=== PATIENT | female | born 1945 | race Caucasian/White ===

== ENCOUNTER 2019-02-24 15:12 | Inpatient (IN) | payer OTHER ==
--- NOTE | 2019-02-24 12:02 | R.PREADM ---
SCREENING DATE AND TIME 02/24/2019 09:05 (DIRECTOR DIETETICS DEPARTMENT) ANTICIPATED REHAB ADMISSION DATE 02/26/2019 REFERRING FACILITY [facility] REFERRAL DATE AND TIME 02/21/2019 11:48 (DIRECTOR DIETETICS DEPARTMENT) REFERRAL OFFICE PHONE REFERRAL ROOM# [id number] ACUTE ADMIT DATE 02/18/2019 Previous Rehabilitation(s): No. ACUTE DISCOTHEQUE DANCER/DC LICENSING AND REGISTRATION DIRECTOR Laura Barrientos REFERRING PHYSICIAN Abram Dutta MD PRIMARY CARE PHYSICIAN Abram Dutta MD REHAB FACILITY [facility] CLINICAL LIAISON Harsh Wynne RN PHYSICIAN REVIEWER Dr. Dontrell Blevins M.D. MR# [id number] NAME GLORIA CARNEY ADDRESS [address] [facility] PHONE [facility] [id number] DATE OF 1945 AGE 73 SSN# [id number] GENDER female MARITAL STATUS RACE white ADMIT FROM 02 - [facility] PRE-HOSPITAL LIVING SETTING 01 - Home (private home/apt. board/care, assisted living, senior care, transitional living) HOME TYPE AND DETAILS Type of home: single family house # of steps within the residence: 1 # of steps to enter the residence: 1 PRE-HOSPITAL LIVING WITH Family/Relatives FAMILY SUPPORT Yes PRIMARY FAMILY CONTACT NAME Rakel Lakhani PRIMARY FAMILY CONTACT PHONE PRIMARY FAMILY CONTACT RELATIONSHIP Friend PHONE PRIMARY FAMILY CONTACT ON ADM.? no IS PRIMARY FAMILY CONTACT AUTH. REP.? no 1ST EMERGENCY CONTACT Kar Rakel 1ST CONTACT PHONE 1ST CONTACT RELATIONSHIP Friend PHONE 1ST CONTACT ON ADM. no IS 1ST CONTACT AUTH. REP.? no PHONE 2ND CONTACT ON ADM.? no PATIENT EMPLOYMENT STATUS Retired (for age) PATIENT EMPLOYER No Employer PAYOR INFORMATION: 1ST PAYOR NAME Medicare 1ST PAYOR PHONE [phone] 1ST PAYOR INJURY/ILLNESS DUE TO ACCIDENT? No ANOTHER GREEN PARTY RESPONSIBLE? No PRIMARY REHAB/ACUTE DIAGNOSIS: Hip Fracture ONSET DATE 02/18/2019 REHAB IMPAIRMENT CATEGORY (JENNA): 07 Fracture of LE (FracLE) MEETS 60% rule AFFECTED EXTREMITIES: LLE PRIMARY DIAGNOSIS-RELATED SURGERIES: Emergency Unilateral Hip Fracture - performed by Abram Dutta MD on 02/20/2019 SUMMARY OF ACUTE HOSPITALIZATION: Pt. is a 73 yo Right-handed white female. On 02/18/2019 she was admitted to [facility] and underwent emergency surgery for Hip Fracture (Unilateral H ip Fracture) by Abram Dutta MD. Pre-morbidly, Pt. was independent/mod-I in Locomotion, Safety Awareness, Balance, and Self-Care; and she had good Social Cognition, Transfers Control, Sphincter Control, Communication, and Endurance. Currently, she has deficits of Locomotion, Safety Awareness, Self-Care, Balance, Transfers Control, S ocial Cognition, Sphincter Control, and Endurance. Pt. is now referred to [facility] for acute in-patient rehabilitation in order to maximize patient's functional independence in activities of daily living, strength, ROM, and mobi lity. Patient has realistic goal of being discharged at assistance level 6-Mike to reside at Home with Fam jenn/Relatives. PAST MEDICAL HISTORY Hypertention Age-related osteoporosis with current pathological fracture, right shoulder, initial encounter for fr navas (M80.011 osteoporosis Normocytic Anemia Thrombocytopenia Sleep apena Depression MEDICATION ALLERGIES: No Known Drug Allergies (NKDA) ENVIRONMENTAL ALLERGIES: - Substance Allergies None Known - Other Allergies None Known CODE STATUS: Full code WEIGHT/HEIGHT/BMI: WEIGHT 125 lbs HEIGHT 5' 4" BMI 21.5 DIET: - Diet Type Regular - Diet - Solid Texture Regular - Diet - Liquid Texture Regular - Tube Feed N/A SKIN DIAGRAM: Incision on Left hip; extent - small; stage - NS(Not Stageable). Treatment - Per Physician's Orders. REVIEW OF SYSTEMS: - Gen Interactive Oriented to: person, time, and place In distress secondary to decline of status Alert and awake - Vital Signs Temperature: 98.2 F SBP/DBP: 129/57 Pulse: 71 Resp: 18 Vital signs stable, afebrile - CVS RRR VITAL SIGNS Temperature: 98.2 F SBP/DBP: 129/57 Pulse: 71 Resp: 18 Vital signs stable, afebrile MEDICATIONS/TREATMENT: Other- See attached MAR (Medication Administration Record). CURRENT SPHINCTER CONTROL: Pre-hospital bladder status: continent # of bladder accidents in the last 7 days prior to screenin Pre-hospital bowel status: unspecified # of bowel accidents in the last 7 days prior to screenin Last Bowel Movement Date: 02/18/2019 CURRENT LOCOMOTION STATUS: distance traveled in wheelchair 0 feet distance walked 0 feet DETAILED CURRENT FUNCTIONAL STATUS: - Bladder accident frequency: Ind - No accidents in the past 7 days - Bowel accident frequency: Ind - No accidents in the past 7 days - Walking score based on distance walked: 0(N/A) - Wheelchair score based on distance traveled: 0(N/A) QI SCORES: - Self-Care A. Eating 06-Independent B. Oral hygiene 06-Independent C. Toileting hygiene 02-Substantial/maximal assistance E. Shower/bathe self 02-Substantial/maximal assistance F. Upper body dressing 05-Setup or clean-up assistance G. Lower body dressing 01-Dependent H. Putting on/taking off footwear 01-Dependent - Mobility A. Roll left and right 04-Supervision or touching assistance B. Sit to lying 04-Supervision or touching assistance C. Lying to sitting on side of bed 04-Supervision or touching assistance D. Sit to stand 04-Supervision or touching assistance E. Chair/vwv-kr-upidl transfer 04-Supervision or touching assistance F. Toilet transfer 04-Supervision or touching assistance G. Car transfer 88-Not attempted due to medical condition or safety concerns I. Walk 10 feet 04-Supervision or touching assistance J. Walk 50 feet with two turns 10-Not attempted due to environmental limitations K. Walk 150 feet 04-Supervision or touching assistance L. Walking 10 feet on uneven surfaces 10-Not attempted due to environmental limitations M. 1 step (curb) 10-Not attempted due to environmental limitations N. 4 steps 10-Not attempted due to environmental limitations O. 12 steps 10-Not attempted due to environmental limitations P. Picking up object 10-Not attempted due to environmental limitations R. Wheel 50 feet with two turns S. Wheel 150 feet - Bladder and Bowel Bladder continence 0-Always continent Bowel continence 9-Not rated - Endurance Fair - Balance Poor - Safety Awareness Poor CURRENT FUNC. DEFICITS: Endurance, Balance, Mobility, Safety Awareness, and Self-Care CURRENT / PREVIOUS ASSISTIVE DEVICES: Quad Cane Tub Bench Tub Handles HISTORY OF FALLS. HAS THE PATIENT HAD TWO OR MORE FALLS IN THE PAST YEAR OR ANY FALL WITH INJURY IN T HE PAST YEAR?: No PRIOR SURGERY. DID THE PATIENT HAVE MAJOR SURGERY DURING THE 100 DAYS PRIOR TO ADMISSION?: Yes THERAPY NOTES FROM ACUTE CARE: Attached. SPECIAL NEEDS: - Safety Concerns Skin breakdown precautions needed due to skin breakdown risk PRECAUTIONS: - Posterior Hip Precaution No external rotation No hip flexion >90 degrees No internal rotation No wheel chair propulsion - Weight Bearing Precaution WBAT left LE PATIENT NEEDS ACTIVE AND ONGOING THERAPEUTIC INTERVENTION OF MULTIPLE THERAPY DISCIPLINES, INCLUDING: - Dietary and Nutrition Adequate Nutrition. Nutritional Education. Nutritional Supplements. PATIENT NEEDS CLOSE MEDICAL SUPERVISION BY A REHABILITATION PHYSICIAN FOR: Coordination of Treatment Team Post-Op Complications Wound Care PATIENT REQUIRES 24X7 REHAB NURSING FOR MEDICAL AND FUNCTIONAL MGT. OF THE FOLLOWING DEFICITS: Disease Management Medication Management Patient/Family Education Providing Safe Environment Skin Integrity PATIENT REQUIRES INTENSIVE, COORDINATED INTERDISCIPLINARY APPROACH TO REHAB: Arranging Home Equipment/Services Discharge Planning Family Intervention/Training Nonprofit Financial Controller/Case Management PATIENT REHAB POTENTIAL: Devyn CARNEY is able and expected to receive 3 hours of individualized therapy daily on at least 5 of every 7 days Devyn BEDOYAs prognosis for significant practical improvement within a reasonable period of time appe ars Good Expected level of measurable improvement will be of a practical value to Devyn BEDOYAs functional cap acity or adaptations to impairments Has a viable Discharge Plan Medically appropriate; condition is sufficiently stable to participate in intensive rehab program DISCHARGE PLAN: - Estimated Length of Stay (days) 14. - Consensus on plan Discharge plan has been discussed with primary caregiver. Patient/Family is in agreement with the abdirizak n. Primary caregiver is in agreement with the plan. - Patient/Family Goals Return home with assistance. - Planned Living Setting Upon Discharge Home, to live with Family/Relatives. RECOMMENDED CARE LEVEL: IRF RECOMMENDATION DETAILS: Recommended Admission to Comprehensive Rehabilitation Program to Increase Functional Wendel SCREENER'S COMPLETENESS CONFIRMATION: - Screening Confirmation The patient data collection on this preadmission screening form is finished PHYSICIANS REVIEW AND ADMISSION DETERMINATION Admit - Based on my review of the Pre-Admission Screening results, in my medical judgment and experie nce, I concur with the findings and recommend admission to [facility], as this patient requires an IRF level of care. SIGNATURE PANEL: Clinical Liaison - [electronically] signed by Cassidy Gonzalez on 02/24/2019 at 11:02 (DIRECTOR DIETETICS DEPARTMENT) Clinical Liaison - [electronically] signed by Harsh Wynne RN on 02/24/2019 at 11:29 (DIRECTOR DIETETICS DEPARTMENT) Physician Reviewer - [electronically] signed by Dr. Dontrell Blevins M.D. on 02/24/2019 at 12:01 (DIRECTOR DIETETICS DEPARTMENT )
[2019-02-24 19:20] LABS: Urine Appearance CLEAR; Urine Bilirubin NEGATIVE (NEG); Urine Blood NEGATIVE (NEG); Urine Color YELLOW; Urine Glucose NEGATIVE (NEG); Urine Protein NEGATIVE (NEG); Urine Specific Gravity 1.015 (1.005-1.030)
[2019-02-24 19:32] LABS: Urine Bacteria <20 /HPF (<20); Urine Culture Reflex Order NOT NEEDED; Urine Mucus 1+ /HPF (NONE SEEN); Urine RBC <5 /HPF (NONE SEEN)
[2019-02-24] MEDS ORDERED: SENOSIDES 8.6 MG TAB PO PRN (19:38)
[2019-02-24] MEDS ORDERED: DOCUSATE NA 100 MG CAP PO PRN (19:38)
--- NOTE | 2019-02-24 20:05 | R.HP ---
FACILITY: [facility] ENCOUNTER DATE AND TIME: 02/24/2019 20:01 (SUPERVISOR PRE WAVE) MR#: [id number] NAME GLORIA CARNEY ADDRESS: [address] [place] [address]: [place] [address] [address] PHONE: DATE OF : 1945 AGE: 73 SSN# [id number] GENDER: Female DEXTERITY Right-handed MARITAL STATUS RACE White PRE-HOSPITAL LIVING SETTING 01 - Home (private home/apt. board/care, assisted living, long term, transitional living) PRE-HOSPITAL LIVING WITH Family/Relatives ENCOUNTER PHYSICIAN: Dr. Dontrell Blevins M.D. REFERRING DOCTOR: Abram Dutta MD DATE OF ADMISSION: 02/24/2019 17:59 (SUPERVISOR PRE WAVE) REFERRING FACILITY [facility] PRIMARY CARE PHYSICIAN Abram Dutta MD HOME TYPE AND DETAILS: Type of home: single family house # of steps within the residence: 1 # of steps to enter the residence: 1 ADMISSION DIAGNOSIS: Left Hip Fracture ONSET DATE: 02/18/2019 PRIMARY DIAGNOSIS-RELATED SURGERIES: Emergency Unilateral Hip Fracture - performed by Abram Dutta MD on 02/20/2019 HISTORY OF PRESENT ILLNESS (HPI): Pt. is a 73 yo Right-handed white female. On 02/18/2019 she was admitted to [facility] and underwent emergency surgery for Left Hip Fracture (Unilate ral Hip Fracture) by Abram Dutta MD. Pre-morbidly, Pt. was independent/mod-I in Locomotion, Safety Awareness, Balance, and Self-Care; and she had good Social Cognition, Transfers Control, Sphincter Control, Communication, and Endurance. Currently, she has deficits of Locomotion, Safety Awareness, Self-Care, Balance, Transfers Control, S ocial Cognition, Sphincter Control, and Endurance. Pt. is now referred to [facility] for acute in-patient rehabilitation in order to maximize patient's functional independence in activities of daily living, strength, ROM, and mobi lity. Patient has realistic goal of being discharged at assistance level 6-Mike to reside at Home with Fam jenn/Relatives. MEDICATION ALLERGIES: No Known Drug Allergies (NKDA) ENVIRONMENTAL ALLERGIES: - Substance Allergies None Known - Other Allergies None Known PAST MEDICAL HISTORY: Hypertention osteoporosis Age-related osteoporosis with current pathological fracture, right shoulder, initial encounter for fr navas (M80.011 Normocytic Anemia Thrombocytopenia Sleep apena Depression FAMILY HISTORY: Family history is not contributory. SOCIAL HISTORY: - Home Living Family/Relatives REVIEW OF SYSTEMS: - Gen No Chills Fatigue No Fever - Eyes No Double Vision No itchiness - ENMT No Difficulty Swallowing - CVS No Chest Discomfort No Chest Pain Fatigue No Weight Gain - Resp No Cough No Shortness of Breath - GI Continent No Abdominal Pain No Constipation No Diarrhea - Continent No Kidney Pain No Painful Urination No Urinary Urgency - MSK No Joint Pain Muscle Cramps Stiffness - Skin No Itching No Rash No Suspicious Lesions - Neuro Coordination Difficulty No Difficulty with Concentration No Memory Loss No Seizures Weakness - Psych No Anxiety No Depression No HIV Exposure No Persistent Infections No Seasonal Allergies - Endo No Cold/Heat Intolerance No Excessive Hunger No Excessive Thirst No Excessive Urination PHYSICAL EXAM - Gen Interactive Oriented to: person, time, and place In distress secondary to decline of status Alert and awake - Skin No breakdown Normacephalic - Eyes Mild bruise over the left lateral eye. - ENMT No abnormalities - Neck No abnormalities - CVS RRR - Chest No abnormalities - Resp Clear to auscultation - Abd + bowel sound - GI Non distended Deferred - No abnormalities - Ext Mild postoperative edema in the left lower extremity - MSK 4+/5 weakness in left lower extremity - Neuro 4/5 strength left lower extremity. - Psych Mild depression. VITAL SIGNS Temperature: 98.2 F SBP/DBP: 129/57 Pulse: 71 Resp: 18 NURSING: - Shower allowing shower - Skin care per protocol PRECAUTIONS: - Anterior Hip Precaution No abduction No active extension No adduction across midline No external rotation No hip flexion >90 degrees No internal rotation - Posterior Hip Precaution No external rotation No hip flexion >90 degrees No internal rotation No wheel chair propulsion - Weight Bearing Precaution WBAT left LE ACTIVITIES OOB only with supervision QI SCORES: - Self-Care A. Eating 06-Independent B. Oral hygiene 06-Independent C. Toileting hygiene 02-Substantial/maximal assistance E. Shower/bathe self 02-Substantial/maximal assistance F. Upper body dressing 05-Setup or clean-up assistance G. Lower body dressing 01-Dependent H. Putting on/taking off footwear 01-Dependent - Mobility A. Roll left and right 04-Supervision or touching assistance B. Sit to lying 04-Supervision or touching assistance C. Lying to sitting on side of bed 04-Supervision or touching assistance D. Sit to stand 04-Supervision or touching assistance E. Chair/yqy-ak-xjxgf transfer 04-Supervision or touching assistance F. Toilet transfer 04-Supervision or touching assistance G. Car transfer 88-Not attempted due to medical condition or safety concerns I. Walk 10 feet 04-Supervision or touching assistance J. Walk 50 feet with two turns 10-Not attempted due to environmental limitations K. Walk 150 feet 04-Supervision or touching assistance L. Walking 10 feet on uneven surfaces 10-Not attempted due to environmental limitations M. 1 step (curb) 10-Not attempted due to environmental limitations N. 4 steps 10-Not attempted due to environmental limitations O. 12 steps 10-Not attempted due to environmental limitations P. Picking up object 10-Not attempted due to environmental limitations R. Wheel 50 feet with two turns S. Wheel 150 feet - Bladder and Bowel Bladder continence 0-Always continent Bowel continence 9-Not rated - Endurance Fair - Balance Poor - Safety Awareness Poor CURRENT FUNC. DEFICITS: Endurance, Balance, Mobility, Safety Awareness, and Self-Care MEDICATIONS: - Other See attached MAR (Medication Administration Record) ASSESSMENT: Pt. is a 73 yo Right-handed white female.On 02/18/2019 she was admitted to [facility] and underwent emergen cy surgery for Left Hip Fracture (Unilateral Hip Fracture) by Abram Dutta MD.Pre-morbidly, Pt. was in dependent/mod-I in Locomotion, Safety Awareness, Balance, and Self-Care; and she had good Social Cogn ition, Transfers Control, Sphincter Control, Communication, and Endurance.Currently, she has deficits of Locomotion, Safety Awareness, Self-Care, Balance, Transfers Control, Social Cognition, Sphincter Control, and Endurance.Pt. is now referred to [facility] for acute in-patient rehabilitation in order to maximize patient's functional independence in activities of daily living, strength, ROM, and mobility.- Rehab Goal Patient has realistic goal of being discharged at assistance level 6-Mike to reside at Home with Fam jenn/Relatives. REHAB PLAN: - Physical Therapy Weakness - to improve, our physical therapists will perform initial evaluation of pt's status upon a dmission and devise an individualized program for Aquatic Therapy, Neuromuscular Reeducation, and Str engthening Poor balance - to improve, our physical therapists will perform initial evaluation of pt's status up on admission and devise an individualized program for Balance Training Inability to transfer - to improve, our physical therapists will perform initial evaluation of pt's status upon admission and devise an individualized program for Bed mobility Decreased range of motion - to improve, our physical therapists will perform initial evaluation of p t's status upon admission and devise an individualized program for increasing patient's Range of Guillermo on. Need in caregiver upon discharge - to improve, our physical therapists will perform initial evaluati on of pt's status upon admission and devise an individualized program for Caregiver Training Poor endurance - to improve, our physical therapists will perform initial evaluation of pt's status upon admission and devise an individualized program for Endurance Training Gait dysfunction - to improve, our physical therapists will perform initial evaluation of pt's statu s upon admission and devise an individualized program for Gait Training, and Wheel Chair mobility Need for home safety evaluation - to improve, our physical therapists will perform initial evaluatio n of pt's status upon admission and devise an individualized program for Home Evaluation New precaution - to improve, our physical therapists will perform initial evaluation of pt's status upon admission and devise an individualized program for Patient precaution education Edema - to improve, our physical therapists will perform initial evaluation of pt's status upon admi ssion and devise an individualized program for Elevation Training, and Lymphedema Therapy - Occupational Therapy Weakness - to improve, our occupation therapists will perform initial evaluation of pt's status upon admission and devise an individualized program for Aquatic Therapy, Balance, Endurance, UE ROM, and UE strengthening ADL deficits - to improve, our occupation therapists will perform initial evaluation of pt's status upon admission and devise an individualized program for Bathing, Bed mobility, Community Reintegratio n, Cooking, Dressing, Eating, Fine Motor Skills, Grooming, Homemaking, Kitchen Mobility, Laundry, Pat ient Education, Safety Awareness, Splinting - Positioning, Transfers(Toilet, Tub, Shower), and Wheel Chair Management Need for care process manager - to improve, our occupation therapists will perform initial evaluation of pt's status upon admission and devise an individualized program for Caregiver Training Cognitive deficits - to improve, our occupation therapists will perform initial evaluation of pt's s tatus upon admission and devise an individualized program for Cognition - orientation - Balance for Weakness - Bed mobility for ADL deficits MEDICAL PLAN: - Anterior Hip Precaution No abduction No active extension No adduction across midline No external rotation No hip flexion >90 degrees No internal rotation - Diet - Liquid Texture Regular - Tube Feed N/A - Diet Type Regular - Posterior Hip Precaution No external rotation No hip flexion >90 degrees No internal rotation No wheel chair propulsion - Weight Bearing Precaution WBAT LE - Skin care per protocol - Other See attached MAR (Medication Administration Record) - Diet - Solid Texture Regular - Shower shower DISCHARGE PLAN: - Estimated Length of Stay (days) 14. - Consensus on plan Discharge plan has been discussed with primary caregiver. Patient/Family is in agreement with the abdirizak n. Primary caregiver is in agreement with the plan. - Patient/Family Goals Return home with assistance. - Planned Living Setting Upon Discharge Home, to live with Family/Relatives. SIGNATURE PANEL: (SUPERVISOR PRE WAVE)
--- NOTE | 2019-02-24 20:06 | PAPE ---
PATIENT: [facility] MR# [id number] REFERRING DOCTOR Abram Dutta MD PRIMARY CARE PHYSICIAN Abram Dutta MD EVALUATION DATE AND TIME 02/24/2019 20:05 (SERVICE ORDER DISPATCHER) NAME GLORIA CARNEY DATE OF 1945 AGE 73 PHONE N# [id number] GENDER female EVALUATING PHYSICIAN Dr. Dontrell Blevins M.D. ADMISSION DIAGNOSIS: Left Hip Fracture ONSET DATE 02/18/2019 POST-ADMISSION FUNCTIONAL/MEDICAL STATUS: - Bladder Same accident frequency: Ind - No accidents in the past 7 days - Bowel Same accident frequency: Ind - No accidents in the past 7 days - Walking Same score based on distance walked: 0(N/A) - Wheelchair Same score based on distance traveled: 0(N/A) STATUS CHANGE EVALUATION: No change in Functional or Medical Status is identified compared with Pre-Admission screening. PATIENT NEEDS CLOSE MEDICAL SUPERVISION BY A REHABILITATION PHYSICIAN FOR: Coordination of Treatment Team Post-Op Complications Wound Care PATIENT REQUIRES 24X7 REHAB NURSING FOR MEDICAL AND FUNCTIONAL MGT. OF THE FOLLOWING DEFICITS: Disease Management Medication Management Patient/Family Education Providing Safe Environment Skin Integrity PATIENT REQUIRES INTENSIVE, COORDINATED INTERDISCIPLINARY APPROACH TO REHAB: Arranging Home Equipment/Services Discharge Planning Family Intervention/Training Manager Inventory Management/Case Management LIST OF IDENTIFIED AND POTENTIAL PROBLEMS: Alteration in leisure activities Bladder, Incontinence Bowel, Incontinence Infection, Actual or Potential Mobility Impaired Pain, Alteration in Comfort Self Care Deficit Skin Integrity, Actual or Potential Urinary Tract Infection (UTI), Actual or Potential PATIENT COULD BE AT RISK FOR COMPLICATIONS FROM ADVERSE MEDICAL CONDITIONS DUE TO HIS/HER COMORBIDITI ES AND THE RIGORS OF THE INTENSIVE REHABILLITATION PROGRAM. METHODS OR INTERVENTIONS TO AVOID COMPLIC ATIONS INCLUDE: - Bleeding Assess lab values and manage abnormalities. Nursing to teach precautions for anti-coagulation therapy . Wound to be assessed every shift. - Infection Clinical staff to assess and manage the signs and symptoms of infection including fever, redness, war mth, etc. - Urinary Tract Infection - Falls Patient will be evaluated for Fall Precautions and will be placed on Fall Precautions as indicated pe r protocol. - Skin Breakdown Nursing will assess skin daily using assessment tool and will place on Skin Breakdown Precautions as indicated per protocol. - Pain Clinical staff may employ non-medication methods such as massage, distraction, decrease stimulus, etc . as needed. Clinical staff will assess patient's pain level every shift per protocol to assess and e nsure pain management effectiveness. Medications will be given and the pain level re-assessed. PRELIMINARY PLAN OF CARE: - Physical Therapy Patient needs Physical Therapy for a daily minimum of 1.5 hours at least 5 out of 7 days, to improve: Mobility, Strengthening, Transfers, Stretching, ROM, Endurance, Ability to manage stairs, Gait, and Balance. - Rehabilitation Nursing Patient requires 24x7 Rehabilitation Nursing for: Pain Issues, Identifying and preventing risk factor s, Monitoring and reporting current medical conditions, Assisting with ambulation and transfer, Anh ting with all ADL-s, Teaching patients about disease process and medications, Family teaching, Provid ing safe environment, Bowel and Bladder Issues, Skin Integrity, and Medication Management. Patient needs Manager Inventory Management and/or Case Management for: Discharge Planning, Arranging Home Equipmen t or Services, and Family Interventions. - Dietary and Nutrition Services Patient needs Dietary and Nutrition Services for: Adequate Nutrition, Nutritional Supplements, and Nu tritional Education. - Occupational Therapy Patient needs Occupational Therapy for a daily minimum of 1.5 hours at least 5 out of 7 days, to impr ove Activities of Daily Living, including: Eating, Grooming, Bathing, Dressing, Toileting, Toilet Tra nsfers, Community Reintegration, Higher functional activities, Adaptive Equipment, Splinting, Househo ld Tasks, and Other activities as determined. QI SCORES: - Self-Care A. Eating 06-Independent B. Oral hygiene 06-Independent C. Toileting hygiene 02-Substantial/maximal assistance E. Shower/bathe self 02-Substantial/maximal assistance F. Upper body dressing 05-Setup or clean-up assistance G. Lower body dressing 01-Dependent H. Putting on/taking off footwear 01-Dependent - Mobility A. Roll left and right 04-Supervision or touching assistance B. Sit to lying 04-Supervision or touching assistance C. Lying to sitting on side of bed 04-Supervision or touching assistance D. Sit to stand 04-Supervision or touching assistance E. Chair/oat-dn-akaiy transfer 04-Supervision or touching assistance F. Toilet transfer 04-Supervision or touching assistance G. Car transfer 88-Not attempted due to medical condition or safety concerns I. Walk 10 feet 04-Supervision or touching assistance J. Walk 50 feet with two turns 10-Not attempted due to environmental limitations K. Walk 150 feet 04-Supervision or touching assistance L. Walking 10 feet on uneven surfaces 10-Not attempted due to environmental limitations M. 1 step (curb) 10-Not attempted due to environmental limitations N. 4 steps 10-Not attempted due to environmental limitations O. 12 steps 10-Not attempted due to environmental limitations P. Picking up object 10-Not attempted due to environmental limitations R. Wheel 50 feet with two turns S. Wheel 150 feet - Bladder and Bowel Bladder continence 0-Always continent Bowel continence 9-Not rated - Endurance Fair - Balance Poor - Safety Awareness Poor POTENTIAL FUNCTIONAL GOALS FOR PATIENT TO ACHIEVE BY DISCHARGE: - Safety Precaution Patient will remain free from falls or injury at time of discharge. - Bed Mobility Patient will perform bed mobility at 4-Boby level of assistance. - Transfers Patient will complete transfers from bed to chair at 4-Boby level of assistance. - Mobility Patient will ambulate 150 ft with 4-Boby level of assistance with RW. PATIENT REHAB POTENTIAL Devyn CARNEY is able and expected to receive 3 hours of individualized therapy daily on at least 5 of every 7 days Devyn CARNEY's prognosis for significant practical improvement within a reasonable period of time appe ars Good Expected level of measurable improvement will be of a practical value to Devyn CARNEY's functional cap acity or adaptations to impairments Has a viable Discharge Plan Medically appropriate; condition is sufficiently stable to participate in intensive rehab program DISCHARGE PLAN: - Estimated Length of Stay (days) 14. - Consensus on plan Discharge plan has been discussed with primary caregiver. Patient/Family is in agreement with the abdirizak n. Primary caregiver is in agreement with the plan. - Patient/Family Goals Return home with assistance. - Planned Living Setting Upon Discharge Home, to live with Family/Relatives. CONCLUSION ON REHABILITATION NECESSITY: I have evaluated patient's pre-admission functional status and, comparing it to the patient's post-ad mission functional status now, I conclude that the pre-admission assessment was accurate. Patient's c ondition on admission supports the medical necessity of admission to IRF. It is safe to proceed with patient's therapy program. SIGNATURE PANEL: (SERVICE ORDER DISPATCHER)
[2019-02-24] MEDS: TRAMADOL HCL 50 MG TAB PO PRN (21:07)
[2019-02-24] MEDS: BACLOFEN 10 MG TAB PO PRN (21:08)
[2019-02-24] MEDS: MELATONIN 5 MG TABLET PO PRN (21:08)
[2019-02-25 05:47] LABS: Absolute Lymphocytes (CBC) 1.8 K/uL (0.7-4.9); Basophils % 0.8 % (0-1.3); Hematocrit 25.8 % (36.0-45.0); Lymphocytes % 31.8 % (15.3-44.8); MPV 12.1 fL (7.6-11.3); RBC Red Blood Cell Count 2.98 M/uL (3.86-4.86)
[2019-02-25 06:11] LABS: Albumin 2.4 g/dL (3.4-5.0); Magnesium 2.5 mg/dL (1.8-2.4); Potassium 4.4 mmol/L (3.5-5.1); Prealbumin 12.3 mg/dL (20-40)
[2019-02-25] MEDS: TRAMADOL HCL 50 MG TAB PO PRN (06:51)
[2019-02-25] MEDS: CITALOPRAM 10 MG TABLET PO SCH (06:52)
[2019-02-25] MEDS ORDERED: ONDANSETRON 4 MG (ODT) TAB PO PRN (08:07)
[2019-02-25] MEDS: ENOXAPARIN 40 MG/0.4 ML SQ SCH (12:47)
[2019-02-25] MEDS: FERROUS SULFATE 325 MG TAB PO SCH (12:48)
[2019-02-25] MEDS: PROMOD 30 ML DOSE PO SCH ×2 (12:49→18:53)
[2019-02-25] MEDS: BACLOFEN 10 MG TAB PO PRN (18:52)
[2019-02-25] MEDS: MELATONIN 5 MG TABLET PO PRN (18:53)
[2019-02-26] MEDS: TRAMADOL HCL 50 MG TAB PO PRN ×2 (05:15→17:16)
[2019-02-26] MEDS: ENOXAPARIN 40 MG/0.4 ML SQ SCH (07:21)
[2019-02-26] MEDS: FE SULF/FA/VIT B COMP & C TAB PO SCH (08:37)
[2019-02-26] MEDS: CITALOPRAM 10 MG TABLET PO SCH (08:38)
[2019-02-26] MEDS: FERROUS SULFATE 325 MG TAB PO SCH (08:38)
[2019-02-26] MEDS: PROMOD 30 ML DOSE PO SCH ×2 (08:38→19:54)
[2019-02-26] MEDS ORDERED: MAGNESIUM OXIDE 400 MG TAB PO SCH (10:00)
[2019-02-27 06:21] LABS: Absolute Lymphocytes (CBC) 1.5 K/uL (0.7-4.9); Basophils % 0.8 % (0-1.3); Hematocrit 25.3 % (36.0-45.0); MPV 11.9 fL (7.6-11.3); RBC Red Blood Cell Count 2.93 M/uL (3.86-4.86)
[2019-02-27 06:40] LABS: Potassium 4.3 mmol/L (3.5-5.1)
[2019-02-27] MEDS: ENOXAPARIN 40 MG/0.4 ML SQ SCH (07:11)
[2019-02-27] MEDS: FE SULF/FA/VIT B COMP & C TAB PO SCH (08:07)
[2019-02-27] MEDS: CITALOPRAM 10 MG TABLET PO SCH (08:07)
[2019-02-27] MEDS: TRAMADOL HCL 50 MG TAB PO PRN ×2 (08:08→20:56)
[2019-02-27] MEDS: PROMOD 30 ML DOSE PO SCH ×2 (08:08→20:01)
[2019-02-27] MEDS: FERROUS SULFATE 325 MG TAB PO SCH (08:08)
--- NOTE | 2019-02-27 16:21 | FAST ---
SHIFT START DATE/TIME: 02/27/2019 07:00 (BRICK GRADER) SHIFT END DATE/TIME: 02/27/2019 19:00 (BRICK GRADER) NAME GLORIA CARNEY DATE OF : 1945 DATE OF ADMISSION: 02/24/2019 17:59 (BRICK GRADER) PHONE: AGE: 73 N# [id number] GENDER: Female ENCOUNTER PHYSICIAN: Dr. Dontrell Blevins M.D. ADMISSION DIAGNOSIS: - Orthopaedic Disorders 08 - Unilateral Hip Fracture (08.11) Left Hip Fracture. EATING: EATING - STEP 1: Does the patient complete the activity by him/herself with no assistance (physical, verbal/nonverbal cueing, setup/clean-up)? No. EATING - STEP 2: Does the patient need only setup/clean-up assistance from one helper? Yes. 1. [id number] ADMISSION PERFORMANCE: Setup or clean-up assistance CODE: 05 ORAL HYGIENE: ORAL HYGIENE - STEP 1: Does the patient complete the activity by him/herself with no assistance (physical, verbal/nonverbal cueing, setup/clean-up)? No. ORAL HYGIENE - STEP 2: Does the patient need only setup/clean-up assistance from one helper? Yes. 1. [id number] ADMISSION PERFORMANCE: Setup or clean-up assistance CODE: 05 TOILETING HYGIENE: TOILETING HYGIENE - STEP 1: Does the patient complete the activity by him/herself with no assistance (physical, verbal/nonverbal cueing, setup/clean-up)? No. TOILETING HYGIENE - STEP 2: Does the patient need only setup/clean-up assistance from one helper? Yes. 1. [id number] ADMISSION PERFORMANCE: Setup or clean-up assistance CODE: 05 BATHING: Not assessed/no information CODE: - DRESSING - UPPER BODY: Not assessed/no information CODE: - DRESSING - LOWER BODY: Not assessed/no information CODE: - PUTTING ON/TAKING OFF FOOTWEAR: Not assessed/no information CODE: - ROLL LEFT AND RIGHT: ROLL LEFT AND RIGHT - STEP 1: Does the patient complete the activity by him/herself with no assistance (physical, verbal/nonverbal cueing, setup/clean-up)? No. ROLL LEFT AND RIGHT - STEP 2: Does the patient need only setup/clean-up assistance from one helper? Yes. 1. [id number] ADMISSION PERFORMANCE: Setup or clean-up assistance CODE: 05 SIT TO LYING: SIT TO LYING - STEP 1: Does the patient complete the activity by him/herself with no assistance (physical, verbal/nonverbal cueing, setup/clean-up)? No. SIT TO LYING - STEP 2: Does the patient need only setup/clean-up assistance from one helper? Yes. 1. [id number] ADMISSION PERFORMANCE: Setup or clean-up assistance CODE: 05 LYING TO SITTING: LYING TO SITTING ON SIDE OF BED - STEP 1: Does the patient complete the activity by him/herself with no assistance (physical, verbal/nonverbal cueing, setup/clean-up)? No. LYING TO SITTING ON SIDE OF BED - STEP 2: Does the patient need only setup/clean-up assistance from one helper? Yes. 1. [id number] ADMISSION PERFORMANCE: Setup or clean-up assistance CODE: 05 SIT TO STAND: SIT TO STAND - STEP 1: Does the patient complete the activity by him/herself with no assistance (physical, verbal/nonverbal cueing, setup/clean-up)? No. SIT TO STAND - STEP 2: Does the patient need only setup/clean-up assistance from one helper? Yes. 1. [id number] ADMISSION PERFORMANCE: Setup or clean-up assistance CODE: 05 TRANSFERS: BED, CHAIR: CHAIR/[id number]-[id number] TRANSFER - STEP 1: Does the patient complete the activity by him/herself with no assistance (physical, verbal/nonverbal cueing, setup/clean-up)? No. CHAIR/[id number] TRANSFER - STEP 2: Does the patient need only setup/clean-up assistance from one helper? Yes. 1. [id number] ADMISSION PERFORMANCE: Setup or clean-up assistance CODE: 05 TRANSFER TOILET: TOILET TRANSFER - STEP 1: Does the patient complete the activity by him/herself with no assistance (physical, verbal/nonverbal cueing, setup/clean-up)? No. TOILET TRANSFER - STEP 2: Does the patient need only setup/clean-up assistance from one helper? Yes. 1. [id number] ADMISSION PERFORMANCE: Setup or clean-up assistance CODE: 05 TRANSFERS: CAR: Not assessed/no information CODE: - WALK 10 FEET: Not assessed/no information CODE: - 1 STEP (CURB): Not assessed/no information CODE: - PICKING UP OBJECT: Not assessed/no information CODE: - DOES THE PATIENT USE A WHEELCHAIR/SCOOTER? Q1. DOES THE PATIENT USE A WHEELCHAIR/SCOOTER?: Yes CODE: 1 WHEEL 50 FEET WITH TWO TURNS: WHEEL 50 FEET WITH TWO TURNS - STEP 1: Does the patient complete the activity by him/herself with no assistance (physical, verbal/nonverbal cueing, setup/clean-up)? No. WHEEL 50 FEET WITH TWO TURNS - STEP 2: Does the patient need only setup/clean-up assistance from one helper? Yes. 1. [id number] ADMISSION PERFORMANCE: Setup or clean-up assistance CODE: 05 INDICATE THE TYPE OF WHEELCHAIR/SCOOTER USED: RR1. INDICATE THE TYPE OF WHEELCHAIR/SCOOTER USED.: Manual CODE: 1 WHEEL 150 FEET: Not assessed/no information CODE: - INDICATE THE TYPE OF WHEELCHAIR/SCOOTER USED: SS1. INDICATE THE TYPE OF WHEELCHAIR/SCOOTER USED.: Manual CODE: 1 BLADDER AND BOWEL: H350. BLADDER CONTINENCE (3-DAY ASSESSMENT PERIOD): Always continent (no documented incontinence) CODE: 0 H400. BOWEL CONTINENCE (3-DAY ASSESSMENT PERIOD): Always continent CODE: 0 SIGNATURE PANEL: The following modified sections: 1. [id number] Admission Performance, 1. [id number] Admission Performance, 1. [id number] Admission Performance, 1. [id number] Admission Performance, 1. [id number] Admission Performance, 1. [id number] Admission Performance, 1. [id number] Admission Performance, 1. LD0927F Admission Performance , 1. [id number] Admission Performance, Q1. Does the patient use a wheelchair/scooter?, 1. [id number] Admiss ion Performance, RR1. Indicate the type of wheelchair/scooter used., Code, SS1. Indicate the type of wheelchair/scooter used., H350. Bladder Continence (3-day assessment period), H400. Bowel Continence (3-day assessment period) were [electronically] signed by Mara Castillo C.N.A. on SunFeb 27 2019 16: 19:34 GMT-0600 (Central Standard Time)
--- NOTE | 2019-02-27 17:42 | R.PN ---
ENCOUNTER DATE AND TIME: 02/27/2019 17:36 ([facility]) NAME GLORIA CARNEY DATE OF : 1945 DATE OF ADMISSION: 02/24/2019 17:59 ([facility]) Left Hip FractureCHIEF COMPLAINT: Left hip fracture SUBJECTIVE: Pt denied any depression. Pt denied any Shortness of Breath. Ambulated 460' with rolling walker and up and down 15 steps with standby assistance. Self-propelled w heelchair 250' with independence. WBC 5.9, Hgb 8.3. She is on hemocyte plus and ferrous sulfate. Prealbumin is 12.3 She is on promod. VITAL SIGNS Temperature: 98.2 F SBP/DBP: 127/61 Pulse: 69 Resp: 16 MEDICATION ALLERGIES: No Known Drug Allergies (NKDA) ENVIRONMENTAL ALLERGIES: - Substance Allergies None Known - Other Allergies None Known NURSING: - Shower allowing shower - Skin care per protocol PRECAUTIONS: - Anterior Hip Precaution No abduction No active extension No adduction across midline No external rotation No hip flexion >90 degrees No internal rotation - Posterior Hip Precaution No external rotation No hip flexion >90 degrees No internal rotation No wheel chair propulsion - Weight Bearing Precaution WBAT left LE ACTIVITIES OOB only with supervision THERAPIES: - Dietary and Nutrition Adequate Nutrition. Nutritional Education. Nutritional Supplements. PHYSICAL EXAM - Gen Interactive Oriented to: person, time, and place In distress secondary to decline of status Alert and awake - Skin No breakdown Normacephalic - Eyes Mild bruise over the left lateral eye. - ENMT No abnormalities - Neck No abnormalities - CVS RRR - Chest No abnormalities - Resp Clear to auscultation - Abd + bowel sound - GI Non distended Deferred - No abnormalities - Ext Mild postoperative edema in the left lower extremity - MSK 4+/5 weakness in left lower extremity - Neuro 4/5 strength left lower extremity. - Psych Mild depression. ASSESSMENT: Pt. is a 73 yo Right-handed white female.On 02/18/2019 she was admitted to [facility] and underwent emergen cy surgery for Left Hip Fracture (Unilateral Hip Fracture) by Abram Dutta MD.Pre-morbidly, Pt. was in dependent/mod-I in Locomotion, Safety Awareness, Balance, and Self-Care; and she had good Social Cogn ition, Transfers Control, Sphincter Control, Communication, and Endurance.Currently, she has deficits of Locomotion, Safety Awareness, Self-Care, Balance, Transfers Control, Social Cognition, Sphincter Control, and Endurance.Pt. is now referred to [facility] for acute in-patient rehabilitation in order to maximize patient's functional independence in activities of daily living, strength, ROM, and mobility.- Rehab Goal Patient has realistic goal of being discharged at assistance level 6-Mike to reside at Home with Fam jenn/Relatives. MDM/PLAN: - Physical Therapy Weakness - to improve, our physical therapists will perform initial evaluation of pt's status upon ad mission and devise an individualized program for Aquatic Therapy, Neuromuscular Reeducation, and Stre ngthening Poor balance - to improve, our physical therapists will perform initial evaluation of pt's status upo n admission and devise an individualized program for Balance Training Inability to transfer - to improve, our physical therapists will perform initial evaluation of pt's s tatus upon admission and devise an individualized program for Bed mobility Decreased range of motion - to improve, our physical therapists will perform initial evaluation of pt 's status upon admission and devise an individualized program for increasing patient's Range of Motio n. Need in caregiver upon discharge - to improve, our physical therapists will perform initial evaluatio n of pt's status upon admission and devise an individualized program for Caregiver Training Poor endurance - to improve, our physical therapists will perform initial evaluation of pt's status u khris admission and devise an individualized program for Endurance Training Gait dysfunction - to improve, our physical therapists will perform initial evaluation of pt's status upon admission and devise an individualized program for Gait Training, and Wheel Chair mobility Need for home safety evaluation - to improve, our physical therapists will perform initial evaluation of pt's status upon admission and devise an individualized program for Home Evaluation New precaution - to improve, our physical therapists will perform initial evaluation of pt's status u khris admission and devise an individualized program for Patient precaution education Edema - to improve, our physical therapists will perform initial evaluation of pt's status upon admis nitin and devise an individualized program for Elevation Training, and Lymphedema Therapy - Occupational Therapy Weakness - to improve, our occupation therapists will perform initial evaluation of pt's status upon admission and devise an individualized program for Aquatic Therapy, Balance, Endurance, UE ROM, and U E strengthening ADL deficits - to improve, our occupation therapists will perform initial evaluation of pt's status u khris admission and devise an individualized program for Bathing, Bed mobility, Community Reintegration , Cooking, Dressing, Eating, Fine Motor Skills, Grooming, Homemaking, Kitchen Mobility, Laundry, Paty ent Education, Safety Awareness, Splinting - Positioning, Transfers(Toilet, Tub, Shower), and Wheel C hair Management Need for transitions rn care coordinator - to improve, our occupation therapists will perform initial evaluation of pt's s tatus upon admission and devise an individualized program for Caregiver Training Cognitive deficits - to improve, our occupation therapists will perform initial evaluation of pt's st atus upon admission and devise an individualized program for Cognition - orientation - Other See attached MAR (Medication Administration Record) - Anterior Hip Precaution No abduction No active extension No adduction across midline No external rotation No hip flexion >90 degrees No internal rotation - Diet - Liquid Texture Continue Regular - Tube Feed Continue N/A - Diet Type Continue Regular - Posterior Hip Precaution No external rotation No hip flexion >90 degrees No internal rotation No wheel chair propulsion - Weight Bearing Precaution WBAT left LE - Skin care per protocol - Diet - Solid Texture Continue Regular - Shower allowing shower - Balance for Weakness - Bed mobility for ADL deficits FUNCTIONAL STATUS: UPDATED AT WEEKLY TEAM CONFERENCE - Bladder Same accident frequency: 7-Ind - No accidents in the past 7 days - Bowel Same accident frequency: 7-Ind - No accidents in the past 7 days - Walking Same score based on distance walked: 0(N/A) - Wheelchair Same score based on distance traveled: 0(N/A) FUNCTIONAL STATUS: - Self-Care A. Eating Mike B. Grooming Mike C. Bathing Boby D. Dressing - Upper Boby E. Dressing - Lower modA F. Toileting Boby - Sphincter Control G. Bladder control Mike H. Bowel control Mike - Transfers Control I. Bed/Chair/Wheelchair Boby J. Toilet Boby K. Tub/Shower Boby - Locomotion L. Walk/Wheelchair (B) sup M. Stairs maxA - Communication N. Comprehension (B) Ind O. Expression (B) Ind - Social Cognition P. Social Interaction Ind Q. Problem Solving Ind R. Memory Ind - Endurance Good - Balance Good - Safety Awareness Good QI SCORES: - Self-Care A. Eating 06-Independent B. Oral hygiene 06-Independent C. Toileting hygiene 02-Substantial/maximal assistance E. Shower/bathe self 02-Substantial/maximal assistance F. Upper body dressing 05-Setup or clean-up assistance G. Lower body dressing 01-Dependent H. Putting on/taking off footwear 01-Dependent - Mobility A. Roll left and right 04-Supervision or touching assistance B. Sit to lying 04-Supervision or touching assistance C. Lying to sitting on side of bed 04-Supervision or touching assistance D. Sit to stand 04-Supervision or touching assistance E. Chair/prd-nm-vwusu transfer 04-Supervision or touching assistance F. Toilet transfer 04-Supervision or touching assistance G. Car transfer 88-Not attempted due to medical condition or safety concerns I. Walk 10 feet 04-Supervision or touching assistance J. Walk 50 feet with two turns 10-Not attempted due to environmental limitations K. Walk 150 feet 04-Supervision or touching assistance L. Walking 10 feet on uneven surfaces 10-Not attempted due to environmental limitations M. 1 step (curb) 10-Not attempted due to environmental limitations N. 4 steps 10-Not attempted due to environmental limitations O. 12 steps 10-Not attempted due to environmental limitations P. Picking up object 10-Not attempted due to environmental limitations R. Wheel 50 feet with two turns S. Wheel 150 feet - Bladder and Bowel Bladder continence 0-Always continent Bowel continence 9-Not rated - Endurance Fair - Balance Poor - Safety Awareness Poor CURRENT FUNC. DEFICITS: Endurance, Balance, Mobility, Safety Awareness, and Self-Care SIGNATURE PANEL: ([facility])
[2019-02-28] MEDS: ENOXAPARIN 40 MG/0.4 ML SQ SCH (06:40)
[2019-02-28] MEDS: TRAMADOL HCL 50 MG TAB PO PRN ×3 (06:41→19:17)
[2019-02-28] MEDS: FERROUS SULFATE 325 MG TAB PO SCH (08:22)
[2019-02-28] MEDS: CITALOPRAM 10 MG TABLET PO SCH (08:22)
[2019-02-28] MEDS: FE SULF/FA/VIT B COMP & C TAB PO SCH (08:22)
[2019-02-28] MEDS: PROMOD 30 ML DOSE PO SCH ×2 (08:22→19:17)
--- NOTE | 2019-02-28 10:03 | P.RH.PN ---
Estimated Length of Stay: 14 Expected Discharge Date: 03/09/19 Discharge Disposition Plan: Home Family Support: Yes Care Home Goal: Mobility, Transfers, Self Care Vital Signs: Last Vital Signs Temp 97.2 F 02/28/19 07:00 Pulse 69 02/28/19 07:00 Resp 16 02/28/19 07:41 BP 122/58 L 02/28/19 07:00 Pulse Ox 99 02/28/19 07:41 Laboratory: Laboratory Last Values WBC 5.9 K/uL (4.3-10.9) 02/27/19 05:58 RBC 2.93 M/uL (3.86-4.86) L 02/27/19 05:58 Hgb 8.3 g/dL (12.0-15.0) L 02/27/19 05:58 Hct 25.3 % (36.0-45.0) L 02/27/19 05:58 MCV 86.4 fL (80-100) 02/27/19 05:58 MCH 28.5 pg (27.0-35.0) 02/27/19 05:58 MCHC 33.0 g/dL (32.0-36.0) 02/27/19 05:58 RDW 14.5 % (12.1-15.2) 02/27/19 05:58 Plt Count 116 K/uL (152-406) L 02/27/19 05:58 MPV 11.9 fL (7.6-11.3) H 02/27/19 05:58 Neutrophils % 57.9 % (41.7-73.7) 02/27/19 05:58 Lymphocytes % 26.0 % (15.3-44.8) 02/27/19 05:58 Monocytes % 13.8 % (3.3-12.3) H 02/27/19 05:58 Eosinophils % 1.5 % (0-4.4) 02/27/19 05:58 Basophils % 0.8 % (0-1.3) 02/27/19 05:58 Absolute Neutrophils 3.4 K/uL (1.8-8.0) 02/27/19 05:58 Absolute Lymphocytes 1.5 K/uL (0.7-4.9) 02/27/19 05:58 Absolute Monocytes 0.8 K/uL (0.1-1.3) 02/27/19 05:58 Absolute Eosinophils 0.1 K/uL (0-0.5) 02/27/19 05:58 Absolute Basophils 0.0 K/uL (0-0.5) 02/27/19 05:58 Sodium 139 mmol/L (136-145) 02/27/19 05:58 Potassium 4.3 mmol/L (3.5-5.1) 02/27/19 05:58 Chloride 106 mmol/L (98-107) 02/27/19 05:58 Carbon Dioxide 29 mmol/L (21-32) 02/27/19 05:58 BUN 20 mg/dL (7-18) H 02/27/19 05:58 Creatinine 0.80 mg/dL (0.55-1.3) 02/27/19 05:58 Estimated GFR 71 mL/min (=/>90) L 02/27/19 05:58 Glucose 96 mg/dL (74-106) 02/27/19 05:58 Calcium 8.1 mg/dL (8.5-10.1) L 02/27/19 05:58 Magnesium 2.5 mg/dL (1.8-2.4) H 02/25/19 05:34 Albumin 2.4 g/dL (3.4-5.0) L 02/25/19 05:34 Prealbumin 12.3 mg/dL (20-40) L 02/25/19 05:34 Urine Color Yellow 02/24/19 18:55 Urine Appearance Clear 02/24/19 18:55 Urine pH 6.0 (5.0-7.0) 02/24/19 18:55 Ur Specific [place] 1.015 (1.005-1.030) 02/24/19 18:55 Urine Ketones Negative (NEG) 02/24/19 18:55 Urine Blood Negative (NEG) 02/24/19 18:55 Urine Nitrite Negative (NEG) 02/24/19 18:55 Urine Bilirubin Negative (NEG) 02/24/19 18:55 Urine Urobilinogen 1.0 mg/dL (0.2-1.0) 02/24/19 18:55 Ur Leukocyte Esterase 1+ (NEG) H 02/24/19 18:55 Urine RBC <5 /HPF (NONE SEEN) 02/24/19 18:55 Urine WBC 10-20 /HPF (<5) H 02/24/19 18:55 Ur Squamous Epith Cells 5-10 /HPF (NONE SEEN) H 02/24/19 18:55 Urine Bacteria <20 /HPF (<20) 02/24/19 18:55 Urine Mucus 1+ /HPF (NONE SEEN) 02/24/19 18:55 Urine Culture Reflexed Not needed 02/24/19 18:55 Urine Glucose Negative (NEG) 02/24/19 18:55 Urine Total Protein Negative (NEG) 02/24/19 18:55 Weight: 125 lb Wound Present: No Closed Surgical Incision Present: Yes Negative Pressure Wound Therapy Present: No Physician Update: WBC 5.9, Hgb 8.3, prealbumin 12.3. She is on hemocyte plus. She is making good progress with physical and occupational therapy. She got 26/ 30 on the MOCA with possible depression. Medical Issues: Patient is always continent with bladder and bowel Pain Issues: Patient is taking Tramadol 50mg Q6H PO PRN Functional Improvement: Patient is currently learning proper techniques, hip precautions, and safety awareness. Patient appears to have a good overall attitude toward therapy. Speech Therapy Update: Patient obtained a 26/30 on the MOCA indicating a Mild Cognitive Impairment. She exhibited difficulty with task completion for visuospatial and executive functioning skills and lost credit for items under the subtests of language (verbal reasoning) and delayed recall. She consistently required extra time and repeated explanation for task completion. She also required consistent redirection to remain on task as she was verbose and tangential. Patient talked a lot about her living situation and could benefit from a copy worker consult. Summary: Patient's care plan and extermination supervisor goals have been reviewed and revised as necessary. Please see the Rehabilitation Signature page for all necessary signatures.
--- NOTE | 2019-02-28 13:29 | FAST ---
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 Dontrell Blevins M.D. ADMISSION DIAGNOSIS: - Orthopaedic Disorders 08 - Unilateral Hip Fracture (08.11) Left Hip Fracture. EATING: EATING - STEP 1: Does the patient complete the activity by him/herself with no assistance (physical, verbal/nonverbal cueing, setup/clean-up)? Yes. 1. [id number] ADMISSION PERFORMANCE: Independent CODE: 06 ORAL HYGIENE: ORAL HYGIENE - STEP 1: Does the patient complete the activity by him/herself with no assistance (physical, verbal/nonverbal cueing, setup/clean-up)? Yes. 1. [id number] ADMISSION PERFORMANCE: Independent CODE: 06 TOILETING HYGIENE: TOILETING HYGIENE - STEP 1: Does the patient complete the activity by him/herself with no assistance (physical, verbal/nonverbal cueing, setup/clean-up)? No. TOILETING HYGIENE - STEP 2: Does the patient need only setup/clean-up assistance from one helper? No. TOILETING HYGIENE - STEP 3: Does the patient need only verbal/nonverbal cueing or touching/steadying/contact guard assistance fro m one helper? Yes. 1. [id number] ADMISSION PERFORMANCE: Supervision or touching assistance CODE: 04 BATHING: SHOWER/BATHE SELF - STEP 1: Does the patient complete the activity by him/herself with no assistance (physical, verbal/nonverbal cueing, setup/clean-up)? No. SHOWER/BATHE SELF - STEP 2: Does the patient need only setup/clean-up assistance from one helper? No. SHOWER/BATHE SELF - STEP 3: Does the patient need only verbal/nonverbal cueing or touching/steadying/contact guard assistance fro m one helper? Yes. 1. [id number] ADMISSION PERFORMANCE: Supervision or touching assistance CODE: 04 DRESSING - UPPER BODY: DRESSING - UPPER BODY - STEP 1: Does the patient complete the activity by him/herself with no assistance (physical, verbal/nonverbal cueing, setup/clean-up)? No. DRESSING - UPPER BODY - STEP 2: Does the patient need only setup/clean-up assistance from one helper? Yes. 1. [id number] ADMISSION PERFORMANCE: Setup or clean-up assistance CODE: 05 DRESSING - LOWER BODY: DRESSING - LOWER BODY - STEP 1: Does the patient complete the activity by him/herself with no assistance (physical, verbal/nonverbal cueing, setup/clean-up)? No. DRESSING - LOWER BODY - STEP 2: Does the patient need only setup/clean-up assistance from one helper? No. DRESSING - LOWER BODY - STEP 3: Does the patient need only verbal/nonverbal cueing or touching/steadying/contact guard assistance fro m one helper? No. DRESSING - LOWER BODY - STEP 4: Does the patient need physical assistance - for example lifting or trunk support from one helper - wi th the helper providing less than half of the effort? Yes. 1. [id number] ADMISSION PERFORMANCE: Partial/moderate assistance CODE: 03 PUTTING ON/TAKING OFF FOOTWEAR: FOOTWEAR - STEP 1: Does the patient complete the activity by him/herself with no assistance (physical, verbal/nonverbal cueing, setup/clean-up)? No. FOOTWEAR - STEP 2: Does the patient need only setup/clean-up assistance from one helper? No. FOOTWEAR - STEP 3: Does the patient need only verbal/nonverbal cueing or touching/steadying/contact guard assistance fro m one helper? No. FOOTWEAR - STEP 4: Does the patient need physical assistance - for example lifting or trunk support from one helper - wi th the helper providing less than half of the effort? No. FOOTWEAR - STEP 5: Does the patient need physical assistance - for example lifting or trunk support from one helper - wi th the helper providing more than half of the effort? No. FOOTWEAR - STEP 6: Does the helper provide all of the effort? OR Is the assistance of two or more helpers required to co mplete the activity? Yes. 1. [id number] ADMISSION PERFORMANCE: Dependent CODE: 01 DOES THE PATIENT USE A WHEELCHAIR/SCOOTER? CODE: EXPR INDICATE THE TYPE OF WHEELCHAIR/SCOOTER USED: CODE: EXPR INDICATE THE TYPE OF WHEELCHAIR/SCOOTER USED: CODE: EXPR BLADDER AND BOWEL: CODE: EXPR CODE: EXPR SIGNATURE PANEL: The following modified sections: 1. [id number] Admission Performance, 1. [id number] Admission Performance, 1. [id number] Admission Performance, 1. [id number] Admission Performance, 1. [id number] Admission Performance, 1. [id number] Admission Performance, 1. [id number] Admission Performance were [electronically] signed by Benjamin Horne OT on SunFeb 28 2019 13:28:56 GMT-0600 (Central Standard Time)
[2019-02-28] MEDS: BACLOFEN 10 MG TAB PO PRN (19:18)
[2019-02-28] MEDS: MELATONIN 5 MG TABLET PO PRN (19:18)
[2019-03-01] MEDS: ENOXAPARIN 40 MG/0.4 ML SQ SCH (07:10)
[2019-03-01] MEDS: TRAMADOL HCL 50 MG TAB PO PRN ×3 (07:10→16:55)
[2019-03-01] MEDS: FE SULF/FA/VIT B COMP & C TAB PO SCH (08:25)
[2019-03-01] MEDS: CITALOPRAM 10 MG TABLET PO SCH (08:25)
[2019-03-01] MEDS: FERROUS SULFATE 325 MG TAB PO SCH (08:25)
[2019-03-01] MEDS: PROMOD 30 ML DOSE PO SCH ×2 (08:26→19:02)
--- NOTE | 2019-03-01 12:17 | FAST ---
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 Dontrell Blevins M.D. ADMISSION DIAGNOSIS: - Orthopaedic Disorders 08 - Unilateral Hip Fracture (08.11) Left Hip Fracture. EATING: Not assessed/no information CODE: - ORAL HYGIENE: ORAL HYGIENE - STEP 1: Does the patient complete the activity by him/herself with no assistance (physical, verbal/nonverbal cueing, setup/clean-up)? Yes. 1. [id number] ADMISSION PERFORMANCE: Independent CODE: 06 TOILETING HYGIENE: Not assessed/no information CODE: - BATHING: SHOWER/BATHE SELF - STEP 1: Does the patient complete the activity by him/herself with no assistance (physical, verbal/nonverbal cueing, setup/clean-up)? No. SHOWER/BATHE SELF - STEP 2: Does the patient need only setup/clean-up assistance from one helper? No. SHOWER/BATHE SELF - STEP 3: Does the patient need only verbal/nonverbal cueing or touching/steadying/contact guard assistance fro m one helper? Yes. 1. [id number] ADMISSION PERFORMANCE: Supervision or touching assistance CODE: 04 DRESSING - UPPER BODY: DRESSING - UPPER BODY - STEP 1: Does the patient complete the activity by him/herself with no assistance (physical, verbal/nonverbal cueing, setup/clean-up)? No. DRESSING - UPPER BODY - STEP 2: Does the patient need only setup/clean-up assistance from one helper? Yes. 1. [id number] ADMISSION PERFORMANCE: Setup or clean-up assistance CODE: 05 DRESSING - LOWER BODY: DRESSING - LOWER BODY - STEP 1: Does the patient complete the activity by him/herself with no assistance (physical, verbal/nonverbal cueing, setup/clean-up)? No. DRESSING - LOWER BODY - STEP 2: Does the patient need only setup/clean-up assistance from one helper? No. DRESSING - LOWER BODY - STEP 3: Does the patient need only verbal/nonverbal cueing or touching/steadying/contact guard assistance fro m one helper? Yes. 1. [id number] ADMISSION PERFORMANCE: Supervision or touching assistance CODE: 04 PUTTING ON/TAKING OFF FOOTWEAR: FOOTWEAR - STEP 1: Does the patient complete the activity by him/herself with no assistance (physical, verbal/nonverbal cueing, setup/clean-up)? No. FOOTWEAR - STEP 2: Does the patient need only setup/clean-up assistance from one helper? No. FOOTWEAR - STEP 3: Does the patient need only verbal/nonverbal cueing or touching/steadying/contact guard assistance fro m one helper? No. FOOTWEAR - STEP 4: Does the patient need physical assistance - for example lifting or trunk support from one helper - wi th the helper providing less than half of the effort? Yes. 1. [id number] ADMISSION PERFORMANCE: Partial/moderate assistance CODE: 03 DOES THE PATIENT USE A WHEELCHAIR/SCOOTER? CODE: EXPR INDICATE THE TYPE OF WHEELCHAIR/SCOOTER USED: CODE: EXPR INDICATE THE TYPE OF WHEELCHAIR/SCOOTER USED: CODE: EXPR BLADDER AND BOWEL: CODE: EXPR CODE: EXPR SIGNATURE PANEL: The following modified sections: 1. [id number] Admission Performance, 1. [id number] Admission Performance, 1. BR5592e Admission Performance, 1. [id number] Admission Performance, 1. [id number] Admission Performance, 1. [id number] Admission Performance were [electronically] signed by LATRICIA Coffman on Sat Mar 01 2019 12:16:18 GMT-0600 (Central Standard Time)
--- NOTE | 2019-03-01 14:26 | R.PN ---
ENCOUNTER DATE AND TIME: 03/01/2019 14:21 (PRODUCTION SUPPORT ENGINEER) NAME GLORIA CARNEY DATE OF : 1945 DATE OF ADMISSION: 02/24/2019 17:59 (PRODUCTION SUPPORT ENGINEER) Left Hip FractureCHIEF COMPLAINT: Left hip fracture SUBJECTIVE: Pt denied any depression. Pt denied any Shortness of Breath. She reported a moderate increase in left lateral leg and foot pain. Ambulated 50' with rolling walker with contact guard assistance. Self-propelled wheelchair 250' with independence. WBC 5.9, Hgb 8.3. She is on hemocyte plus and ferrous sulfate. Prealbumin is 12.3 She is on promod. A pain patch is added to her left lateral leg and Tramadol frequency is increased to q 4 hours. VITAL SIGNS Temperature: 97.2 F SBP/DBP: 129/59 Pulse: 79 Resp: 16 MEDICATION ALLERGIES: No Known Drug Allergies (NKDA) ENVIRONMENTAL ALLERGIES: - Substance Allergies None Known - Other Allergies None Known NURSING: - Shower allowing shower - Skin care per protocol PRECAUTIONS: - Anterior Hip Precaution No abduction No active extension No adduction across midline No external rotation No hip flexion >90 degrees No internal rotation - Posterior Hip Precaution No external rotation No hip flexion >90 degrees No internal rotation No wheel chair propulsion - Weight Bearing Precaution WBAT left LE ACTIVITIES OOB only with supervision THERAPIES: - Dietary and Nutrition Adequate Nutrition. Nutritional Education. Nutritional Supplements. PHYSICAL EXAM - Gen Interactive Oriented to: person, time, and place In distress secondary to decline of status Alert and awake - Skin No breakdown Normacephalic - Eyes Mild bruise over the left lateral eye. - ENMT No abnormalities - Neck No abnormalities - CVS RRR - Chest No abnormalities - Resp Clear to auscultation - Abd + bowel sound - GI Non distended Deferred - No abnormalities - Ext Mild postoperative edema in the left lower extremity - MSK 4+/5 weakness in left lower extremity - Neuro 4/5 strength left lower extremity. - Psych Mild depression. ASSESSMENT: Pt. is a 73 yo Right-handed white female.On 02/18/2019 she was admitted to [facility] and underwent emergen cy surgery for Left Hip Fracture (Unilateral Hip Fracture) by Abram Dutta MD.Pre-morbidly, Pt. was in dependent/mod-I in Locomotion, Safety Awareness, Balance, and Self-Care; and she had good Social Cogn ition, Transfers Control, Sphincter Control, Communication, and Endurance.Currently, she has deficits of Locomotion, Safety Awareness, Self-Care, Balance, Transfers Control, Social Cognition, Sphincter Control, and Endurance.Pt. is now referred to [facility] for acute in-patient rehabilitation in order to maximize patient's functional independence in activities of daily living, strength, ROM, and mobility.- Rehab Goal Patient has realistic goal of being discharged at assistance level 6-Mike to reside at Home with Fam jenn/Relatives. MDM/PLAN: - Physical Therapy Weakness - to improve, our physical therapists will perform initial evaluation of pt's status upon a dmission and devise an individualized program for Aquatic Therapy, Neuromuscular Reeducation, and Str engthening Poor balance - to improve, our physical therapists will perform initial evaluation of pt's status up on admission and devise an individualized program for Balance Training Inability to transfer - to improve, our physical therapists will perform initial evaluation of pt's status upon admission and devise an individualized program for Bed mobility Decreased range of motion - to improve, our physical therapists will perform initial evaluation of p t's status upon admission and devise an individualized program for increasing patient's Range of Guillermo on. Need in caregiver upon discharge - to improve, our physical therapists will perform initial evaluati on of pt's status upon admission and devise an individualized program for Caregiver Training Poor endurance - to improve, our physical therapists will perform initial evaluation of pt's status upon admission and devise an individualized program for Endurance Training Gait dysfunction - to improve, our physical therapists will perform initial evaluation of pt's statu s upon admission and devise an individualized program for Gait Training, and Wheel Chair mobility Need for home safety evaluation - to improve, our physical therapists will perform initial evaluatio n of pt's status upon admission and devise an individualized program for Home Evaluation New precaution - to improve, our physical therapists will perform initial evaluation of pt's status upon admission and devise an individualized program for Patient precaution education Edema - to improve, our physical therapists will perform initial evaluation of pt's status upon admi ssion and devise an individualized program for Elevation Training, and Lymphedema Therapy - Occupational Therapy Weakness - to improve, our occupation therapists will perform initial evaluation of pt's status upon admission and devise an individualized program for Aquatic Therapy, Balance, Endurance, UE ROM, and UE strengthening ADL deficits - to improve, our occupation therapists will perform initial evaluation of pt's status upon admission and devise an individualized program for Bathing, Bed mobility, Community Reintegratio n, Cooking, Dressing, Eating, Fine Motor Skills, Grooming, Homemaking, Kitchen Mobility, Laundry, Pat ient Education, Safety Awareness, Splinting - Positioning, Transfers(Toilet, Tub, Shower), and Wheel Chair Management Need for care team assistant - to improve, our occupation therapists will perform initial evaluation of pt's status upon admission and devise an individualized program for Caregiver Training Cognitive deficits - to improve, our occupation therapists will perform initial evaluation of pt's s tatus upon admission and devise an individualized program for Cognition - orientation - Other See attached MAR (Medication Administration Record) - Anterior Hip Precaution No abduction No active extension No adduction across midline No external rotation No hip flexion >90 degrees No internal rotation - Diet - Liquid Texture Continue Regular - Tube Feed Continue N/A - Diet Type Continue Regular - Posterior Hip Precaution No external rotation No hip flexion >90 degrees No internal rotation No wheel chair propulsion - Weight Bearing Precaution WBAT left LE - Skin care per protocol - Diet - Solid Texture Continue Regular - Shower allowing shower - Balance for Weakness - Bed mobility for ADL deficits FUNCTIONAL STATUS: UPDATED AT WEEKLY TEAM CONFERENCE - Bladder Same accident frequency: 7-Ind - No accidents in the past 7 days - Bowel Same accident frequency: 7-Ind - No accidents in the past 7 days - Walking Same score based on distance walked: 0(N/A) - Wheelchair Same score based on distance traveled: 0(N/A) FUNCTIONAL STATUS: - Self-Care A. Eating Mike B. Grooming Mike C. Bathing Boby D. Dressing - Upper Boby E. Dressing - Lower modA F. Toileting Boby - Sphincter Control G. Bladder control Mike H. Bowel control Mike - Transfers Control I. Bed/Chair/Wheelchair Boby J. Toilet Boby K. Tub/Shower Boby - Locomotion L. Walk/Wheelchair (B) sup M. Stairs maxA - Communication N. Comprehension (B) Ind O. Expression (B) Ind - Social Cognition P. Social Interaction Ind Q. Problem Solving Ind R. Memory Ind - Endurance Good - Balance Good - Safety Awareness Good QI SCORES: - Self-Care A. Eating 06-Independent B. Oral hygiene 06-Independent C. Toileting hygiene 02-Substantial/maximal assistance E. Shower/bathe self 02-Substantial/maximal assistance F. Upper body dressing 05-Setup or clean-up assistance G. Lower body dressing 01-Dependent H. Putting on/taking off footwear 01-Dependent - Mobility A. Roll left and right 04-Supervision or touching assistance B. Sit to lying 04-Supervision or touching assistance C. Lying to sitting on side of bed 04-Supervision or touching assistance D. Sit to stand 04-Supervision or touching assistance E. Chair/gop-kd-[id number] transfer 04-Supervision or touching assistance F. Toilet transfer 04-Supervision or touching assistance G. Car transfer 88-Not attempted due to medical condition or safety concerns I. Walk 10 feet 04-Supervision or touching assistance J. Walk 50 feet with two turns 10-Not attempted due to environmental limitations K. Walk 150 feet 04-Supervision or touching assistance L. Walking 10 feet on uneven surfaces 10-Not attempted due to environmental limitations M. 1 step (curb) 10-Not attempted due to environmental limitations N. 4 steps 10-Not attempted due to environmental limitations O. 12 steps 10-Not attempted due to environmental limitations P. Picking up object 10-Not attempted due to environmental limitations R. Wheel 50 feet with two turns S. Wheel 150 feet - Bladder and Bowel Bladder continence 0-Always continent Bowel continence 9-Not rated - Endurance Fair - Balance Poor - Safety Awareness Poor CURRENT FUNC. DEFICITS: Endurance, Balance, Mobility, Safety Awareness, and Self-Care SIGNATURE PANEL: (PRODUCTION SUPPORT ENGINEER)
[2019-03-01] MEDS: MELATONIN 5 MG TABLET PO PRN (19:02)
[2019-03-01] MEDS: BACLOFEN 10 MG TAB PO PRN (19:02)
[2019-03-02] MEDS: ENOXAPARIN 40 MG/0.4 ML SQ SCH (06:28)
[2019-03-02] MEDS: LIDOCAINE 4% PATCH TOP SCH (06:29)
[2019-03-02] MEDS: TRAMADOL HCL 50 MG TAB PO PRN ×3 (07:09→19:31)
[2019-03-02] MEDS: CITALOPRAM 10 MG TABLET PO SCH (08:03)
[2019-03-02] MEDS: FE SULF/FA/VIT B COMP & C TAB PO SCH (08:03)
[2019-03-02] MEDS: FERROUS SULFATE 325 MG TAB PO SCH (08:03)
[2019-03-02] MEDS: PROMOD 30 ML DOSE PO SCH ×2 (08:04→19:32)
[2019-03-02] MEDS: MELATONIN 5 MG TABLET PO PRN (19:31)
[2019-03-02] MEDS: BACLOFEN 10 MG TAB PO PRN (19:31)
[2019-03-03] MEDS: LIDOCAINE 4% PATCH TOP SCH (07:46)
[2019-03-03] MEDS: ENOXAPARIN 40 MG/0.4 ML SQ SCH (07:46)
[2019-03-03] MEDS: TRAMADOL HCL 50 MG TAB PO PRN ×2 (08:21→12:00)
[2019-03-03] MEDS: CITALOPRAM 10 MG TABLET PO SCH (08:21)
[2019-03-03] MEDS: FE SULF/FA/VIT B COMP & C TAB PO SCH (08:21)
[2019-03-03] MEDS: FERROUS SULFATE 325 MG TAB PO SCH (08:21)
[2019-03-03] MEDS: PROMOD 30 ML DOSE PO SCH ×2 (08:22→20:02)
--- NOTE | 2019-03-03 14:48 | FAST ---
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 Dontrell Blevins M.D. ADMISSION DIAGNOSIS: - Orthopaedic Disorders 08 - Unilateral Hip Fracture (08.11) Left Hip Fracture. EATING: Not assessed/no information CODE: - ORAL HYGIENE: ORAL HYGIENE - STEP 1: Does the patient complete the activity by him/herself with no assistance (physical, verbal/nonverbal cueing, setup/clean-up)? Yes. 1. [id number] ADMISSION PERFORMANCE: Independent CODE: 06 TOILETING HYGIENE: TOILETING HYGIENE - STEP 1: Does the patient complete the activity by him/herself with no assistance (physical, verbal/nonverbal cueing, setup/clean-up)? No. TOILETING HYGIENE - STEP 2: Does the patient need only setup/clean-up assistance from one helper? No. TOILETING HYGIENE - STEP 3: Does the patient need only verbal/nonverbal cueing or touching/steadying/contact guard assistance fro m one helper? Yes. 1. [id number] ADMISSION PERFORMANCE: Supervision or touching assistance CODE: 04 BATHING: SHOWER/BATHE SELF - STEP 1: Does the patient complete the activity by him/herself with no assistance (physical, verbal/nonverbal cueing, setup/clean-up)? No. SHOWER/BATHE SELF - STEP 2: Does the patient need only setup/clean-up assistance from one helper? No. SHOWER/BATHE SELF - STEP 3: Does the patient need only verbal/nonverbal cueing or touching/steadying/contact guard assistance fro m one helper? Yes. 1. [id number] ADMISSION PERFORMANCE: Supervision or touching assistance CODE: 04 DRESSING - UPPER BODY: DRESSING - UPPER BODY - STEP 1: Does the patient complete the activity by him/herself with no assistance (physical, verbal/nonverbal cueing, setup/clean-up)? Yes. 1. [id number] ADMISSION PERFORMANCE: Independent CODE: 06 DRESSING - LOWER BODY: DRESSING - LOWER BODY - STEP 1: Does the patient complete the activity by him/herself with no assistance (physical, verbal/nonverbal cueing, setup/clean-up)? No. DRESSING - LOWER BODY - STEP 2: Does the patient need only setup/clean-up assistance from one helper? No. DRESSING - LOWER BODY - STEP 3: Does the patient need only verbal/nonverbal cueing or touching/steadying/contact guard assistance fro m one helper? Yes. 1. [id number] ADMISSION PERFORMANCE: Supervision or touching assistance CODE: 04 PUTTING ON/TAKING OFF FOOTWEAR: FOOTWEAR - STEP 1: Does the patient complete the activity by him/herself with no assistance (physical, verbal/nonverbal cueing, setup/clean-up)? No. FOOTWEAR - STEP 2: Does the patient need only setup/clean-up assistance from one helper? No. FOOTWEAR - STEP 3: Does the patient need only verbal/nonverbal cueing or touching/steadying/contact guard assistance fro m one helper? Yes. 1. [id number] ADMISSION PERFORMANCE: Supervision or touching assistance CODE: 04 DOES THE PATIENT USE A WHEELCHAIR/SCOOTER? CODE: EXPR INDICATE THE TYPE OF WHEELCHAIR/SCOOTER USED: CODE: EXPR INDICATE THE TYPE OF WHEELCHAIR/SCOOTER USED: CODE: EXPR BLADDER AND BOWEL: CODE: EXPR CODE: EXPR SIGNATURE PANEL: The following modified sections: 1. [id number] Admission Performance, 1. [id number] Admission Performance, 1. [id number] Admission Performance, 1. MP6385g Admission Performance, 1. CS9097v Admission Performance, 1. [id number] Admission Performance were [electronically] signed by LATRICIA Coffman on SunMar 03 2019 14:48:11 GMT-0600 (Central Standard Time)
--- NOTE | 2019-03-03 21:14 | R.PN ---
ENCOUNTER DATE AND TIME: 03/03/2019 21:03 (DOORPERSON) NAME GLORIA CARNEY DATE OF : 1945 DATE OF ADMISSION: 02/24/2019 17:59 (DOORPERSON) Left Hip FractureCHIEF COMPLAINT: Left hip fracture SUBJECTIVE: Pt denied any depression. Pt denied any Shortness of Breath. She reported a moderate increase in left lateral leg and foot pain. Ambulated 50' with rolling walker with contact guard assistance. Self-propelled wheelchair 250' with independence. WBC 5.9, Hgb 8.3. She is on hemocyte plus and ferrous sulfate. Prealbumin is 12.3 She is on promod. A pain patch is added to her left lateral leg and Tramadol frequency is increased to q 4 hours. She performed ADLs with minimum assistance to supervision. VITAL SIGNS Temperature: 4 F SBP/DBP: 132/62 Pulse: 76 Resp: 16 MEDICATION ALLERGIES: No Known Drug Allergies (NKDA) ENVIRONMENTAL ALLERGIES: - Substance Allergies None Known - Other Allergies None Known NURSING: - Shower allowing shower - Skin care per protocol PRECAUTIONS: - Anterior Hip Precaution No abduction No active extension No adduction across midline No external rotation No hip flexion >90 degrees No internal rotation - Posterior Hip Precaution No external rotation No hip flexion >90 degrees No internal rotation No wheel chair propulsion - Weight Bearing Precaution WBAT left LE ACTIVITIES OOB only with supervision THERAPIES: - Dietary and Nutrition Adequate Nutrition. Nutritional Education. Nutritional Supplements. PHYSICAL EXAM - Gen Interactive Oriented to: person, time, and place In distress secondary to decline of status Alert and awake - Skin No breakdown Normacephalic - Eyes Mild bruise over the left lateral eye. - ENMT No abnormalities - Neck No abnormalities - CVS RRR - Chest No abnormalities - Resp Clear to auscultation - Abd + bowel sound - GI Non distended Deferred - No abnormalities - Ext Mild postoperative edema in the left lower extremity - MSK 4+/5 weakness in left lower extremity - Neuro 4/5 strength left lower extremity. - Psych Mild depression. ASSESSMENT: Pt. is a 73 yo Right-handed white female.On 02/18/2019 she was admitted to [facility] and underwent emergen cy surgery for Left Hip Fracture (Unilateral Hip Fracture) by Abram Dtuta MD.Pre-morbidly, Pt. was in dependent/mod-I in Locomotion, Safety Awareness, Balance, and Self-Care; and she had good Social Cogn ition, Transfers Control, Sphincter Control, Communication, and Endurance.Currently, she has deficits of Locomotion, Safety Awareness, Self-Care, Balance, Transfers Control, Social Cognition, Sphincter Control, and Endurance.Pt. is now referred to [facility] for acute in-patient rehabilitation in order to maximize patient's functional independence in activities of daily living, strength, ROM, and mobility.- Rehab Goal Patient has realistic goal of being discharged at assistance level 6-Mike to reside at Home with Fam jenn/Relatives. MDM/PLAN: - Physical Therapy Weakness - to improve, our physical therapists will perform initial evaluation of pt's status upon a dmission and devise an individualized program for Aquatic Therapy, Neuromuscular Reeducation, and Str engthening Poor balance - to improve, our physical therapists will perform initial evaluation of pt's status up on admission and devise an individualized program for Balance Training Inability to transfer - to improve, our physical therapists will perform initial evaluation of pt's status upon admission and devise an individualized program for Bed mobility Decreased range of motion - to improve, our physical therapists will perform initial evaluation of p t's status upon admission and devise an individualized program for increasing patient's Range of Guillermo on. Need in caregiver upon discharge - to improve, our physical therapists will perform initial evaluati on of pt's status upon admission and devise an individualized program for Caregiver Training Poor endurance - to improve, our physical therapists will perform initial evaluation of pt's status upon admission and devise an individualized program for Endurance Training Gait dysfunction - to improve, our physical therapists will perform initial evaluation of pt's statu s upon admission and devise an individualized program for Gait Training, and Wheel Chair mobility Need for home safety evaluation - to improve, our physical therapists will perform initial evaluatio n of pt's status upon admission and devise an individualized program for Home Evaluation New precaution - to improve, our physical therapists will perform initial evaluation of pt's status upon admission and devise an individualized program for Patient precaution education Edema - to improve, our physical therapists will perform initial evaluation of pt's status upon admi ssion and devise an individualized program for Elevation Training, and Lymphedema Therapy - Occupational Therapy Weakness - to improve, our occupation therapists will perform initial evaluation of pt's status upon admission and devise an individualized program for Aquatic Therapy, Balance, Endurance, UE ROM, and UE strengthening ADL deficits - to improve, our occupation therapists will perform initial evaluation of pt's status upon admission and devise an individualized program for Bathing, Bed mobility, Community Reintegratio n, Cooking, Dressing, Eating, Fine Motor Skills, Grooming, Homemaking, Kitchen Mobility, Laundry, Pat ient Education, Safety Awareness, Splinting - Positioning, Transfers(Toilet, Tub, Shower), and Wheel Chair Management Need for animal care giver - to improve, our occupation therapists will perform initial evaluation of pt's status upon admission and devise an individualized program for Caregiver Training Cognitive deficits - to improve, our occupation therapists will perform initial evaluation of pt's s tatus upon admission and devise an individualized program for Cognition - orientation - Other See attached MAR (Medication Administration Record) - Anterior Hip Precaution No abduction No active extension No adduction across midline No external rotation No hip flexion >90 degrees No internal rotation - Diet - Liquid Texture Continue Regular - Tube Feed Continue N/A - Diet Type Continue Regular - Posterior Hip Precaution No external rotation No hip flexion >90 degrees No internal rotation No wheel chair propulsion - Weight Bearing Precaution WBAT left LE - Skin care per protocol - Diet - Solid Texture Continue Regular - Shower allowing shower - Balance for Weakness - Bed mobility for ADL deficits FUNCTIONAL STATUS: UPDATED AT WEEKLY TEAM CONFERENCE - Bladder Same accident frequency: 7-Ind - No accidents in the past 7 days - Bowel Same accident frequency: 7-Ind - No accidents in the past 7 days - Walking Same score based on distance walked: 0(N/A) - Wheelchair Same score based on distance traveled: 0(N/A) FUNCTIONAL STATUS: - Self-Care A. Eating Mike B. Grooming Mike C. Bathing Boby D. Dressing - Upper Boby E. Dressing - Lower modA F. Toileting Boby - Sphincter Control G. Bladder control Mike H. Bowel control Mike - Transfers Control I. Bed/Chair/Wheelchair Boby J. Toilet Boby K. Tub/Shower Boby - Locomotion L. Walk/Wheelchair (B) sup M. Stairs maxA - Communication N. Comprehension (B) Ind O. Expression (B) Ind - Social Cognition P. Social Interaction Ind Q. Problem Solving Ind R. Memory Ind - Endurance Good - Balance Good - Safety Awareness Good QI SCORES: - Self-Care A. Eating 06-Independent B. Oral hygiene 06-Independent C. Toileting hygiene 02-Substantial/maximal assistance E. Shower/bathe self 02-Substantial/maximal assistance F. Upper body dressing 05-Setup or clean-up assistance G. Lower body dressing 01-Dependent H. Putting on/taking off footwear 01-Dependent - Mobility A. Roll left and right 04-Supervision or touching assistance B. Sit to lying 04-Supervision or touching assistance C. Lying to sitting on side of bed 04-Supervision or touching assistance D. Sit to stand 04-Supervision or touching assistance E. Chair/[id number] transfer 04-Supervision or touching assistance F. Toilet transfer 04-Supervision or touching assistance G. Car transfer 88-Not attempted due to medical condition or safety concerns I. Walk 10 feet 04-Supervision or touching assistance J. Walk 50 feet with two turns 10-Not attempted due to environmental limitations K. Walk 150 feet 04-Supervision or touching assistance L. Walking 10 feet on uneven surfaces 10-Not attempted due to environmental limitations M. 1 step (curb) 10-Not attempted due to environmental limitations N. 4 steps 10-Not attempted due to environmental limitations O. 12 steps 10-Not attempted due to environmental limitations P. Picking up object 10-Not attempted due to environmental limitations R. Wheel 50 feet with two turns S. Wheel 150 feet - Bladder and Bowel Bladder continence 0-Always continent Bowel continence 9-Not rated - Endurance Fair - Balance Poor - Safety Awareness Poor [facility] DEFICITS: Endurance, Balance, Mobility, Safety Awareness, and Self-Care SIGNATURE PANEL: (DOORPERSON)
[2019-03-04] MEDS: TRAMADOL HCL 50 MG TAB PO PRN ×3 (00:13→13:32)
[2019-03-04] MEDS: ENOXAPARIN 40 MG/0.4 ML SQ SCH (07:40)
[2019-03-04] MEDS: LIDOCAINE 4% PATCH TOP SCH (07:41)
[2019-03-04] MEDS: CITALOPRAM 10 MG TABLET PO SCH (07:59)
[2019-03-04] MEDS: FE SULF/FA/VIT B COMP & C TAB PO SCH (07:59)
[2019-03-04] MEDS: FERROUS SULFATE 325 MG TAB PO SCH (07:59)
[2019-03-04] MEDS: PROMOD 30 ML DOSE PO SCH ×2 (08:00→20:01)
--- NOTE | 2019-03-04 10:18 | FAST ---
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 Dontrell Blevins M.D. ADMISSION DIAGNOSIS: - Orthopaedic Disorders 08 - Unilateral Hip Fracture (08.11) Left Hip Fracture. EATING: EATING - STEP 1: Does the patient complete the activity by him/herself with no assistance (physical, verbal/nonverbal cueing, setup/clean-up)? No. EATING - STEP 2: Does the patient need only setup/clean-up assistance from one helper? Yes. 1. [id number] ADMISSION PERFORMANCE: Setup or clean-up assistance CODE: 05 ORAL HYGIENE: ORAL HYGIENE - STEP 1: Does the patient complete the activity by him/herself with no assistance (physical, verbal/nonverbal cueing, setup/clean-up)? No. ORAL HYGIENE - STEP 2: Does the patient need only setup/clean-up assistance from one helper? No. ORAL HYGIENE - STEP 3: Does the patient need only verbal/nonverbal cueing or touching/steadying/contact guard assistance fro m one helper? Yes. 1. [id number] ADMISSION PERFORMANCE: Supervision or touching assistance CODE: 04 TOILETING HYGIENE: TOILETING HYGIENE - STEP 1: Does the patient complete the activity by him/herself with no assistance (physical, verbal/nonverbal cueing, setup/clean-up)? No. TOILETING HYGIENE - STEP 2: Does the patient need only setup/clean-up assistance from one helper? No. TOILETING HYGIENE - STEP 3: Does the patient need only verbal/nonverbal cueing or touching/steadying/contact guard assistance fro m one helper? Yes. 1. [id number] ADMISSION PERFORMANCE: Supervision or touching assistance CODE: 04 BATHING: Not assessed/no information CODE: - DRESSING - UPPER BODY: Not assessed/no information CODE: - DRESSING - LOWER BODY: Not assessed/no information CODE: - PUTTING ON/TAKING OFF FOOTWEAR: Not assessed/no information CODE: - ROLL LEFT AND RIGHT: ROLL LEFT AND RIGHT - STEP 1: Does the patient complete the activity by him/herself with no assistance (physical, verbal/nonverbal cueing, setup/clean-up)? No. ROLL LEFT AND RIGHT - STEP 2: Does the patient need only setup/clean-up assistance from one helper? No. ROLL LEFT AND RIGHT - STEP 3: Does the patient need only verbal/nonverbal cueing or touching/steadying/contact guard assistance fro m one helper? Yes. 1. [id number] ADMISSION PERFORMANCE: Supervision or touching assistance CODE: 04 SIT TO LYING: SIT TO LYING - STEP 1: Does the patient complete the activity by him/herself with no assistance (physical, verbal/nonverbal cueing, setup/clean-up)? No. SIT TO LYING - STEP 2: Does the patient need only setup/clean-up assistance from one helper? No. SIT TO LYING - STEP 3: Does the patient need only verbal/nonverbal cueing or touching/steadying/contact guard assistance fro m one helper? Yes. 1. [id number] ADMISSION PERFORMANCE: Supervision or touching assistance CODE: 04 LYING TO SITTING: LYING TO SITTING ON SIDE OF BED - STEP 1: Does the patient complete the activity by him/herself with no assistance (physical, verbal/nonverbal cueing, setup/clean-up)? No. LYING TO SITTING ON SIDE OF BED - STEP 2: Does the patient need only setup/clean-up assistance from one helper? No. LYING TO SITTING ON SIDE OF BED - STEP 3: Does the patient need only verbal/nonverbal cueing or touching/steadying/contact guard assistance fro m one helper? Yes. 1. [id number] ADMISSION PERFORMANCE: Supervision or touching assistance CODE: 04 SIT TO STAND: SIT TO STAND - STEP 1: Does the patient complete the activity by him/herself with no assistance (physical, verbal/nonverbal cueing, setup/clean-up)? No. SIT TO STAND - STEP 2: Does the patient need only setup/clean-up assistance from one helper? No. SIT TO STAND - STEP 3: Does the patient need only verbal/nonverbal cueing or touching/steadying/contact guard assistance fro m one helper? Yes. 1. [id number] ADMISSION PERFORMANCE: Supervision or touching assistance CODE: 04 TRANSFERS: BED, CHAIR: CHAIR/[id number] TRANSFER - STEP 1: Does the patient complete the activity by him/herself with no assistance (physical, verbal/nonverbal cueing, setup/clean-up)? No. CHAIR/[id number] TRANSFER - STEP 2: Does the patient need only setup/clean-up assistance from one helper? No. CHAIR/[id number] TRANSFER - STEP 3: Does the patient need only verbal/nonverbal cueing or touching/steadying/contact guard assistance fro m one helper? Yes. 1. [id number] ADMISSION PERFORMANCE: Supervision or touching assistance CODE: 04 TRANSFER TOILET: TOILET TRANSFER - STEP 1: Does the patient complete the activity by him/herself with no assistance (physical, verbal/nonverbal cueing, setup/clean-up)? No. TOILET TRANSFER - STEP 2: Does the patient need only setup/clean-up assistance from one helper? No. TOILET TRANSFER - STEP 3: Does the patient need only verbal/nonverbal cueing or touching/steadying/contact guard assistance fro m one helper? Yes. 1. [id number] ADMISSION PERFORMANCE: Supervision or touching assistance CODE: 04 TRANSFERS: CAR: Not assessed/no information CODE: - WALK 10 FEET: Not assessed/no information CODE: - 1 STEP (CURB): Not assessed/no information CODE: - PICKING UP OBJECT: Not assessed/no information CODE: - DOES THE PATIENT USE A WHEELCHAIR/SCOOTER? CODE: EXPR WHEEL 50 FEET WITH TWO TURNS: Not assessed/no information CODE: - INDICATE THE TYPE OF WHEELCHAIR/SCOOTER USED: CODE: EXPR WHEEL 150 FEET: Not assessed/no information CODE: - INDICATE THE TYPE OF WHEELCHAIR/SCOOTER USED: CODE: EXPR BLADDER AND BOWEL: H350. BLADDER CONTINENCE (3-DAY ASSESSMENT PERIOD): Always continent (no documented incontinence) CODE: 0 H400. BOWEL CONTINENCE (3-DAY ASSESSMENT PERIOD): Always continent CODE: 0 SIGNATURE PANEL: The following modified sections: 1. [id number] Admission Performance, 1. [id number] Admission Performance, 1. VI3964H Admission Performance, 1. [id number] Admission Performance, 1. [id number] Admission Performance, 1. [id number] Admission Performance, 1. [id number] Admission Performance, 1. [id number] Admission Performance , 1. [id number] Admission Performance, 1. [id number] Admission Performance, Code, H350. Bladder Continence (3-day assessment period), H400. Bowel Continence (3-day assessment period) were [electronically] sig anshul by Lewis Kan on SunMar 04 2019 10:17:41 GMT-0600 (Central Standard Time)
--- NOTE | 2019-03-04 10:42 | FAST ---
SHIFT START DATE/TIME: 03/03/2019 07:00 (STOCK REPLENISHER) SHIFT END DATE/TIME: 03/03/2019 19:00 (STOCK REPLENISHER) NAME GLORIA CARNEY DATE OF : 1945 DATE OF ADMISSION: 02/24/2019 17:59 (STOCK REPLENISHER) PHONE: AGE: 73 N# [id number] GENDER: Female ENCOUNTER PHYSICIAN: Dr. Dontrell Blevins M.D. ADMISSION DIAGNOSIS: - Orthopaedic Disorders 08 - Unilateral Hip Fracture (08.11) Left Hip Fracture. EATING: EATING - STEP 1: Does the patient complete the activity by him/herself with no assistance (physical, verbal/nonverbal cueing, setup/clean-up)? No. EATING - STEP 2: Does the patient need only setup/clean-up assistance from one helper? No. EATING - STEP 3: Does the patient need only verbal/nonverbal cueing or touching/steadying/contact guard assistance fro m one helper? Yes. 1. [id number] ADMISSION PERFORMANCE: Supervision or touching assistance CODE: 04 ORAL HYGIENE: ORAL HYGIENE - STEP 1: Does the patient complete the activity by him/herself with no assistance (physical, verbal/nonverbal cueing, setup/clean-up)? No. ORAL HYGIENE - STEP 2: Does the patient need only setup/clean-up assistance from one helper? No. ORAL HYGIENE - STEP 3: Does the patient need only verbal/nonverbal cueing or touching/steadying/contact guard assistance fro m one helper? No. ORAL HYGIENE - STEP 4: Does the patient need physical assistance - for example lifting or trunk support from one helper - wi th the helper providing less than half of the effort? Yes. 1. [id number] ADMISSION PERFORMANCE: Partial/moderate assistance CODE: 03 TOILETING HYGIENE: TOILETING HYGIENE - STEP 1: Does the patient complete the activity by him/herself with no assistance (physical, verbal/nonverbal cueing, setup/clean-up)? No. TOILETING HYGIENE - STEP 2: Does the patient need only setup/clean-up assistance from one helper? No. TOILETING HYGIENE - STEP 3: Does the patient need only verbal/nonverbal cueing or touching/steadying/contact guard assistance fro m one helper? No. TOILETING HYGIENE - STEP 4: Does the patient need physical assistance - for example lifting or trunk support from one helper - wi th the helper providing less than half of the effort? Yes. 1. [id number] ADMISSION PERFORMANCE: Partial/moderate assistance CODE: 03 BATHING: Not assessed/no information CODE: - DRESSING - UPPER BODY: Not assessed/no information CODE: - DRESSING - LOWER BODY: Not assessed/no information CODE: - PUTTING ON/TAKING OFF FOOTWEAR: Not assessed/no information CODE: - ROLL LEFT AND RIGHT: ROLL LEFT AND RIGHT - STEP 1: Does the patient complete the activity by him/herself with no assistance (physical, verbal/nonverbal cueing, setup/clean-up)? No. ROLL LEFT AND RIGHT - STEP 2: Does the patient need only setup/clean-up assistance from one helper? No. ROLL LEFT AND RIGHT - STEP 3: Does the patient need only verbal/nonverbal cueing or touching/steadying/contact guard assistance fro m one helper? Yes. 1. [id number] ADMISSION PERFORMANCE: Supervision or touching assistance CODE: 04 SIT TO LYING: SIT TO LYING - STEP 1: Does the patient complete the activity by him/herself with no assistance (physical, verbal/nonverbal cueing, setup/clean-up)? No. SIT TO LYING - STEP 2: Does the patient need only setup/clean-up assistance from one helper? No. SIT TO LYING - STEP 3: Does the patient need only verbal/nonverbal cueing or touching/steadying/contact guard assistance fro m one helper? No. SIT TO LYING - STEP 4: Does the patient need physical assistance - for example lifting or trunk support from one helper - wi th the helper providing less than half of the effort? Yes. 1. [id number] ADMISSION PERFORMANCE: Partial/moderate assistance CODE: 03 LYING TO SITTING: LYING TO SITTING ON SIDE OF BED - STEP 1: Does the patient complete the activity by him/herself with no assistance (physical, verbal/nonverbal cueing, setup/clean-up)? No. LYING TO SITTING ON SIDE OF BED - STEP 2: Does the patient need only setup/clean-up assistance from one helper? No. LYING TO SITTING ON SIDE OF BED - STEP 3: Does the patient need only verbal/nonverbal cueing or touching/steadying/contact guard assistance fro m one helper? Yes. 1. [id number] ADMISSION PERFORMANCE: Supervision or touching assistance CODE: 04 SIT TO STAND: SIT TO STAND - STEP 1: Does the patient complete the activity by him/herself with no assistance (physical, verbal/nonverbal cueing, setup/clean-up)? No. SIT TO STAND - STEP 2: Does the patient need only setup/clean-up assistance from one helper? No. SIT TO STAND - STEP 3: Does the patient need only verbal/nonverbal cueing or touching/steadying/contact guard assistance fro m one helper? Yes. 1. [id number] ADMISSION PERFORMANCE: Supervision or touching assistance CODE: 04 TRANSFERS: BED, CHAIR: CHAIR/[id number] TRANSFER - STEP 1: Does the patient complete the activity by him/herself with no assistance (physical, verbal/nonverbal cueing, setup/clean-up)? No. CHAIR/[id number] TRANSFER - STEP 2: Does the patient need only setup/clean-up assistance from one helper? No. CHAIR/[id number] TRANSFER - STEP 3: Does the patient need only verbal/nonverbal cueing or touching/steadying/contact guard assistance fro m one helper? No. CHAIR/[id number] TRANSFER - STEP 4: Does the patient need physical assistance - for example lifting or trunk support from one helper - wi th the helper providing less than half of the effort? Yes. 1. [id number] ADMISSION PERFORMANCE: Partial/moderate assistance CODE: 03 TRANSFER TOILET: TOILET TRANSFER - STEP 1: Does the patient complete the activity by him/herself with no assistance (physical, verbal/nonverbal cueing, setup/clean-up)? No. TOILET TRANSFER - STEP 2: Does the patient need only setup/clean-up assistance from one helper? No. TOILET TRANSFER - STEP 3: Does the patient need only verbal/nonverbal cueing or touching/steadying/contact guard assistance fro m one helper? Yes. 1. [id number] ADMISSION PERFORMANCE: Supervision or touching assistance CODE: 04 TRANSFERS: CAR: Not assessed/no information CODE: - WALK 10 FEET: Not assessed/no information CODE: - 1 STEP (CURB): Not assessed/no information CODE: - PICKING UP OBJECT: Not assessed/no information CODE: - DOES THE PATIENT USE A WHEELCHAIR/SCOOTER? CODE: EXPR WHEEL 50 FEET WITH TWO TURNS: Not assessed/no information CODE: - INDICATE THE TYPE OF WHEELCHAIR/SCOOTER USED: CODE: EXPR WHEEL 150 FEET: Not assessed/no information CODE: - INDICATE THE TYPE OF WHEELCHAIR/SCOOTER USED: CODE: EXPR BLADDER AND BOWEL: H350. BLADDER CONTINENCE (3-DAY ASSESSMENT PERIOD): Always continent (no documented incontinence) CODE: 0 H400. BOWEL CONTINENCE (3-DAY ASSESSMENT PERIOD): Always continent CODE: 0 SIGNATURE PANEL: The following modified sections: 1. [id number] Admission Performance, 1. [id number] Admission Performance, 1. [id number] Admission Performance, 1. [id number] Admission Performance, 1. [id number] Admission Performance, 1. [id number] Admission Performance, 1. [id number] Admission Performance, 1. [id number] Admission Performance , 1. [id number] Admission Performance, Code, H350. Bladder Continence (3-day assessment period), H400. B owel Continence (3-day assessment period) were [electronically] signed by Lewis Kan on SunMar 04 10:42:42 GMT-0600 (Central Standard Time)
--- NOTE | 2019-03-04 21:52 | R.PN ---
ENCOUNTER DATE AND TIME: 03/04/2019 21:46 (WASTEWATER TREATMENT ENGINEER) NAME GLORIA CARNEY DATE OF : 1945 DATE OF ADMISSION: 02/24/2019 17:59 (WASTEWATER TREATMENT ENGINEER) Left Hip FractureCHIEF COMPLAINT: Left hip fracture SUBJECTIVE: Pt denied any depression. Pt denied any Shortness of Breath. She reports a moderate decrease in left lateral leg and foot pain. Ambulated 250' with rolling walker with standby assistance. Self-propelled wheelchair 250' with independence. WBC 5.9, Hgb 8.3. She is on hemocyte plus and ferrous sulfate. Prealbumin is 12.3 She is on promod. A pain patch is added to her left lateral leg and Tramadol frequency is increased to q 4 hours. She performed ADLs with minimum assistance to supervision. VITAL SIGNS Temperature: 98.2 F SBP/DBP: 118/59 Pulse: 76 Resp: 16 MEDICATION ALLERGIES: No Known Drug Allergies (NKDA) ENVIRONMENTAL ALLERGIES: - Substance Allergies None Known - Other Allergies None Known NURSING: - Shower allowing shower - Skin care per protocol PRECAUTIONS: - Anterior Hip Precaution No abduction No active extension No adduction across midline No external rotation No hip flexion >90 degrees No internal rotation - Posterior Hip Precaution No external rotation No hip flexion >90 degrees No internal rotation No wheel chair propulsion - Weight Bearing Precaution WBAT left LE ACTIVITIES OOB only with supervision THERAPIES: - Dietary and Nutrition Adequate Nutrition. Nutritional Education. Nutritional Supplements. PHYSICAL EXAM - Gen Interactive Oriented to: person, time, and place In distress secondary to decline of status Alert and awake - Skin No breakdown Normacephalic - Eyes Mild bruise over the left lateral eye. - ENMT No abnormalities - Neck No abnormalities - CVS RRR - Chest No abnormalities - Resp Clear to auscultation - Abd + bowel sound - GI Non distended Deferred - No abnormalities - Ext Mild postoperative edema in the left lower extremity - MSK 4+/5 weakness in left lower extremity - Neuro 4/5 strength left lower extremity. - Psych Mild depression. ASSESSMENT: Pt. is a 73 yo Right-handed white female.On 02/18/2019 she was admitted to [facility] and underwent emergen cy surgery for Left Hip Fracture (Unilateral Hip Fracture) by Abram Dutta MD.Pre-morbidly, Pt. was in dependent/mod-I in Locomotion, Safety Awareness, Balance, and Self-Care; and she had good Social Cogn ition, Transfers Control, Sphincter Control, Communication, and Endurance.Currently, she has deficits of Locomotion, Safety Awareness, Self-Care, Balance, Transfers Control, Social Cognition, Sphincter Control, and Endurance.Pt. is now referred to [facility] for acute in-patient rehabilitation in order to maximize patient's functional independence in activities of daily living, strength, ROM, and mobility.- Rehab Goal Patient has realistic goal of being discharged at assistance level 6-Mike to reside at Home with Fam jenn/Relatives. MDM/PLAN: - Physical Therapy Weakness - to improve, our physical therapists will perform initial evaluation of pt's status upon a dmission and devise an individualized program for Aquatic Therapy, Neuromuscular Reeducation, and Str engthening Poor balance - to improve, our physical therapists will perform initial evaluation of pt's status up on admission and devise an individualized program for Balance Training Inability to transfer - to improve, our physical therapists will perform initial evaluation of pt's status upon admission and devise an individualized program for Bed mobility Decreased range of motion - to improve, our physical therapists will perform initial evaluation of p t's status upon admission and devise an individualized program for increasing patient's Range of Guillermo on. Need in caregiver upon discharge - to improve, our physical therapists will perform initial evaluati on of pt's status upon admission and devise an individualized program for Caregiver Training Poor endurance - to improve, our physical therapists will perform initial evaluation of pt's status upon admission and devise an individualized program for Endurance Training Gait dysfunction - to improve, our physical therapists will perform initial evaluation of pt's statu s upon admission and devise an individualized program for Gait Training, and Wheel Chair mobility Need for home safety evaluation - to improve, our physical therapists will perform initial evaluatio n of pt's status upon admission and devise an individualized program for Home Evaluation New precaution - to improve, our physical therapists will perform initial evaluation of pt's status upon admission and devise an individualized program for Patient precaution education Edema - to improve, our physical therapists will perform initial evaluation of pt's status upon admi ssion and devise an individualized program for Elevation Training, and Lymphedema Therapy - Occupational Therapy Weakness - to improve, our occupation therapists will perform initial evaluation of pt's status upon admission and devise an individualized program for Aquatic Therapy, Balance, Endurance, UE ROM, and UE strengthening ADL deficits - to improve, our occupation therapists will perform initial evaluation of pt's status upon admission and devise an individualized program for Bathing, Bed mobility, Community Reintegratio n, Cooking, Dressing, Eating, Fine Motor Skills, Grooming, Homemaking, Kitchen Mobility, Laundry, Pat ient Education, Safety Awareness, Splinting - Positioning, Transfers(Toilet, Tub, Shower), and Wheel Chair Management Need for child day care provider - to improve, our occupation therapists will perform initial evaluation of pt's status upon admission and devise an individualized program for Caregiver Training Cognitive deficits - to improve, our occupation therapists will perform initial evaluation of pt's s tatus upon admission and devise an individualized program for Cognition - orientation - Other See attached MAR (Medication Administration Record) - Anterior Hip Precaution No abduction No active extension No adduction across midline No external rotation No hip flexion >90 degrees No internal rotation - Diet - Liquid Texture Continue Regular - Tube Feed Continue N/A - Diet Type Continue Regular - Posterior Hip Precaution No external rotation No hip flexion >90 degrees No internal rotation No wheel chair propulsion - Weight Bearing Precaution WBAT left LE - Skin care per protocol - Diet - Solid Texture Continue Regular - Shower allowing shower - Balance for Weakness - Bed mobility for ADL deficits FUNCTIONAL STATUS: UPDATED AT WEEKLY TEAM CONFERENCE - Bladder Same accident frequency: 7-Ind - No accidents in the past 7 days - Bowel Same accident frequency: 7-Ind - No accidents in the past 7 days - Walking Same score based on distance walked: 0(N/A) - Wheelchair Same score based on distance traveled: 0(N/A) FUNCTIONAL STATUS: - Self-Care A. Eating Mike B. Grooming Mike C. Bathing Boby D. Dressing - Upper Boby E. Dressing - Lower modA F. Toileting Boby - Sphincter Control G. Bladder control Mike H. Bowel control Mike - Transfers Control I. Bed/Chair/Wheelchair Boby J. Toilet Boby K. Tub/Shower Boby - Locomotion L. Walk/Wheelchair (B) sup M. Stairs maxA - Communication N. Comprehension (B) Ind O. Expression (B) Ind - Social Cognition P. Social Interaction Ind Q. Problem Solving Ind R. Memory Ind - Endurance Good - Balance Good - Safety Awareness Good QI SCORES: - Self-Care A. Eating 06-Independent B. Oral hygiene 06-Independent C. Toileting hygiene 02-Substantial/maximal assistance E. Shower/bathe self 02-Substantial/maximal assistance F. Upper body dressing 05-Setup or clean-up assistance G. Lower body dressing 01-Dependent H. Putting on/taking off footwear 01-Dependent - Mobility A. Roll left and right 04-Supervision or touching assistance B. Sit to lying 04-Supervision or touching assistance C. Lying to sitting on side of bed 04-Supervision or touching assistance D. Sit to stand 04-Supervision or touching assistance E. Chair/ljj-ni-rsita transfer 04-Supervision or touching assistance F. Toilet transfer 04-Supervision or touching assistance G. Car transfer 88-Not attempted due to medical condition or safety concerns I. Walk 10 feet 04-Supervision or touching assistance J. Walk 50 feet with two turns 10-Not attempted due to environmental limitations K. Walk 150 feet 04-Supervision or touching assistance L. Walking 10 feet on uneven surfaces 10-Not attempted due to environmental limitations M. 1 step (curb) 10-Not attempted due to environmental limitations N. 4 steps 10-Not attempted due to environmental limitations O. 12 steps 10-Not attempted due to environmental limitations P. Picking up object 10-Not attempted due to environmental limitations R. Wheel 50 feet with two turns S. Wheel 150 feet - Bladder and Bowel Bladder continence 0-Always continent Bowel continence 9-Not rated - Endurance Fair - Balance Poor - Safety Awareness Poor CURRENT FUNC. DEFICITS: Endurance, Balance, Mobility, Safety Awareness, and Self-Care SIGNATURE PANEL: (WASTEWATER TREATMENT ENGINEER)
[2019-03-05] MEDS: TRAMADOL HCL 50 MG TAB PO PRN ×3 (00:02→12:55)
[2019-03-05] MEDS: ENOXAPARIN 40 MG/0.4 ML SQ SCH (07:30)
[2019-03-05] MEDS: PROMOD 30 ML DOSE PO SCH ×2 (08:13→20:07)
[2019-03-05] MEDS: FE SULF/FA/VIT B COMP & C TAB PO SCH (08:13)
[2019-03-05] MEDS: CITALOPRAM 10 MG TABLET PO SCH (08:13)
[2019-03-05] MEDS: FERROUS SULFATE 325 MG TAB PO SCH (08:13)
[2019-03-05] MEDS: LIDOCAINE 4% PATCH TOP SCH (08:27)
--- NOTE | 2019-03-05 12:27 | FAST ---
ENCOUNTER DATE AND TIME: 03/05/2019 08:00 (MARKETING MANAGER HEALTH COMMUNICATIONS) NAME GLORIA CARNEY DATE OF : 1945 DATE OF ADMISSION: 02/24/2019 17:59 (MARKETING MANAGER HEALTH COMMUNICATIONS) PHONE: AGE: 73 N# [id number] GENDER: Female ENCOUNTER PHYSICIAN: Dr. Dontrell Blevins M.D. ADMISSION DIAGNOSIS: - Orthopaedic Disorders 08 - Unilateral Hip Fracture (08.11) Left Hip Fracture. EATING: Not assessed/no information CODE: - ORAL HYGIENE: ORAL HYGIENE - STEP 1: Does the patient complete the activity by him/herself with no assistance (physical, verbal/nonverbal cueing, setup/clean-up)? Yes. 1. [id number] ADMISSION PERFORMANCE: Independent CODE: 06 TOILETING HYGIENE: Not assessed/no information CODE: - BATHING: SHOWER/BATHE SELF - STEP 1: Does the patient complete the activity by him/herself with no assistance (physical, verbal/nonverbal cueing, setup/clean-up)? No. SHOWER/BATHE SELF - STEP 2: Does the patient need only setup/clean-up assistance from one helper? No. SHOWER/BATHE SELF - STEP 3: Does the patient need only verbal/nonverbal cueing or touching/steadying/contact guard assistance fro m one helper? Yes. 1. [id number] ADMISSION PERFORMANCE: Supervision or touching assistance CODE: 04 DRESSING - UPPER BODY: DRESSING - UPPER BODY - STEP 1: Does the patient complete the activity by him/herself with no assistance (physical, verbal/nonverbal cueing, setup/clean-up)? Yes. 1. [id number] ADMISSION PERFORMANCE: Independent CODE: 06 DRESSING - LOWER BODY: DRESSING - LOWER BODY - STEP 1: Does the patient complete the activity by him/herself with no assistance (physical, verbal/nonverbal cueing, setup/clean-up)? No. DRESSING - LOWER BODY - STEP 2: Does the patient need only setup/clean-up assistance from one helper? No. DRESSING - LOWER BODY - STEP 3: Does the patient need only verbal/nonverbal cueing or touching/steadying/contact guard assistance fro m one helper? Yes. 1. [id number] ADMISSION PERFORMANCE: Supervision or touching assistance CODE: 04 PUTTING ON/TAKING OFF FOOTWEAR: FOOTWEAR - STEP 1: Does the patient complete the activity by him/herself with no assistance (physical, verbal/nonverbal cueing, setup/clean-up)? No. FOOTWEAR - STEP 2: Does the patient need only setup/clean-up assistance from one helper? Yes. 1. [id number] ADMISSION PERFORMANCE: Setup or clean-up assistance CODE: 05 DOES THE PATIENT USE A WHEELCHAIR/SCOOTER? CODE: EXPR INDICATE THE TYPE OF WHEELCHAIR/SCOOTER USED: CODE: EXPR INDICATE THE TYPE OF WHEELCHAIR/SCOOTER USED: CODE: EXPR BLADDER AND BOWEL: CODE: EXPR CODE: EXPR SIGNATURE PANEL: The following modified sections: 1. [id number] Admission Performance, 1. [id number] Admission Performance, 1. [id number] Admission Performance, 1. [id number] Admission Performance, 1. [id number] Admission Performance were [electronically] signed by LATRICIA Coffman on SunMar 05 2019 12:27:18 GMT-0600 (Central Standard Time)
[2019-03-06 06:15] LABS: Basophils % 0.8 % (0-1.3); Hematocrit 25.8 % (36.0-45.0); Lymphocytes % 18.4 % (15.3-44.8); RBC Red Blood Cell Count 2.96 M/uL (3.86-4.86)
[2019-03-06 06:34] LABS: Albumin 2.6 g/dL (3.4-5.0); Magnesium 2.7 mg/dL (1.8-2.4); Potassium 4.3 mmol/L (3.5-5.1); Prealbumin 14.5 mg/dL (20-40)
[2019-03-06] MEDS: LIDOCAINE 4% PATCH TOP SCH (07:27)
[2019-03-06] MEDS: ENOXAPARIN 40 MG/0.4 ML SQ SCH (07:27)
[2019-03-06] MEDS: PROMOD 30 ML DOSE PO SCH ×2 (08:00→20:16)
[2019-03-06] MEDS: FERROUS SULFATE 325 MG TAB PO SCH (08:17)
[2019-03-06] MEDS: TRAMADOL HCL 50 MG TAB PO PRN ×3 (08:17→20:14)
[2019-03-06] MEDS: CITALOPRAM 10 MG TABLET PO SCH (08:17)
[2019-03-06] MEDS: FE SULF/FA/VIT B COMP & C TAB PO SCH (08:17)
--- NOTE | 2019-03-06 17:35 | FAST ---
ENCOUNTER DATE AND TIME: 03/06/2019 08:00 (DATA MINER) NAME GLORIA CARNEY DATE OF : 1945 DATE OF ADMISSION: 02/24/2019 17:59 (DATA MINER) PHONE: AGE: 73 N# [id number] GENDER: Female ENCOUNTER PHYSICIAN: Dr. Dontrell Blevins M.D. ADMISSION DIAGNOSIS: - Orthopaedic Disorders 08 - Unilateral Hip Fracture (08.11) Left Hip Fracture. ROLL LEFT AND RIGHT: ROLL LEFT AND RIGHT - STEP 1: Does the patient complete the activity by him/herself with no assistance (physical, verbal/nonverbal cueing, setup/clean-up)? Yes. 1. [id number] ADMISSION PERFORMANCE: Independent CODE: 06 SIT TO LYING: SIT TO LYING - STEP 1: Does the patient complete the activity by him/herself with no assistance (physical, verbal/nonverbal cueing, setup/clean-up)? Yes. 1. [id number] ADMISSION PERFORMANCE: Independent CODE: 06 LYING TO SITTING: LYING TO SITTING ON SIDE OF BED - STEP 1: Does the patient complete the activity by him/herself with no assistance (physical, verbal/nonverbal cueing, setup/clean-up)? Yes. 1. [id number] ADMISSION PERFORMANCE: Independent CODE: 06 SIT TO STAND: SIT TO STAND - STEP 1: Does the patient complete the activity by him/herself with no assistance (physical, verbal/nonverbal cueing, setup/clean-up)? No. SIT TO STAND - STEP 2: Does the patient need only setup/clean-up assistance from one helper? No. SIT TO STAND - STEP 3: Does the patient need only verbal/nonverbal cueing or touching/steadying/contact guard assistance fro m one helper? Yes. 1. [id number] ADMISSION PERFORMANCE: Supervision or touching assistance CODE: 04 TRANSFERS: BED, CHAIR: CHAIR/[id number] TRANSFER - STEP 1: Does the patient complete the activity by him/herself with no assistance (physical, verbal/nonverbal cueing, setup/clean-up)? No. CHAIR/[id number] TRANSFER - STEP 2: Does the patient need only setup/clean-up assistance from one helper? No. CHAIR/[id number] TRANSFER - STEP 3: Does the patient need only verbal/nonverbal cueing or touching/steadying/contact guard assistance fro m one helper? Yes. 1. [id number] ADMISSION PERFORMANCE: Supervision or touching assistance CODE: TRANSFER TOILET: TOILET TRANSFER - STEP 1: Does the patient complete the activity by him/herself with no assistance (physical, verbal/nonverbal cueing, setup/clean-up)? No. TOILET TRANSFER - STEP 2: Does the patient need only setup/clean-up assistance from one helper? No. TOILET TRANSFER - STEP 3: Does the patient need only verbal/nonverbal cueing or touching/steadying/contact guard assistance fro m one helper? Yes. 1. [id number] ADMISSION PERFORMANCE: Supervision or touching assistance CODE: TRANSFERS: CAR: Not attempted due to environmental limitations (e.g., lack of equipment, weather constraints) CODE: 10 WALK 10 FEET: WALK 10 FEET - STEP 1: Does the patient complete the activity by him/herself with no assistance (physical, verbal/nonverbal cueing, setup/clean-up)? No. WALK 10 FEET - STEP 2: Does the patient need only setup/clean-up assistance from one helper? No. WALK 10 FEET - STEP 3: Does the patient need only verbal/nonverbal cueing or touching/steadying/contact guard assistance fro m one helper? Yes. 1. [id number] ADMISSION PERFORMANCE: Supervision or touching assistance CODE: WALK 50 FEET: WALK 50 FEET - STEP 1: Does the patient complete the activity by him/herself with no assistance (physical, verbal/nonverbal cueing, setup/clean-up)? No. WALK 50 FEET - STEP 2: Does the patient need only setup/clean-up assistance from one helper? No. WALK 50 FEET - STEP 3: Does the patient need only verbal/nonverbal cueing or touching/steadying/contact guard assistance fro m one helper? Yes. 1. [id number] ADMISSION PERFORMANCE: Supervision or touching assistance CODE: WALK 150 FEET: WALK 150 FEET - STEP 1: Does the patient complete the activity by him/herself with no assistance (physical, verbal/nonverbal cueing, setup/clean-up)? No. WALK 150 FEET - STEP 2: Does the patient need only setup/clean-up assistance from one helper? No. WALK 150 FEET - STEP 3: Does the patient need only verbal/nonverbal cueing or touching/steadying/contact guard assistance fro m one helper? Yes. 1. [id number] ADMISSION PERFORMANCE: Supervision or touching assistance CODE: 04 WALK 10 FEET UNEVEN: Not attempted due to medical condition or safety concerns CODE: 88 1 STEP (CURB): 1 STEP CURB - STEP 1: Does the patient complete the activity by him/herself with no assistance (physical, verbal/nonverbal cueing, setup/clean-up)? No. 1 STEP CURB - STEP 2: Does the patient need only setup/clean-up assistance from one helper? No. 1 STEP CURB - STEP 3: Does the patient need only verbal/nonverbal cueing or touching/steadying/contact guard assistance fro m one helper? Yes. 1. [id number] ADMISSION PERFORMANCE: Supervision or touching assistance CODE: 04 4 STEPS: 4 STEPS - STEP 1: Does the patient complete the activity by him/herself with no assistance (physical, verbal/nonverbal cueing, setup/clean-up)? No. 4 STEPS - STEP 2: Does the patient need only setup/clean-up assistance from one helper? No. 4 STEPS - STEP 3: Does the patient need only verbal/nonverbal cueing or touching/steadying/contact guard assistance fro m one helper? Yes. 1. [id number] ADMISSION PERFORMANCE: Supervision or touching assistance CODE: 04 12 STEPS: 12 STEPS - STEP 1: Does the patient complete the activity by him/herself with no assistance (physical, verbal/nonverbal cueing, setup/clean-up)? No. 12 STEPS - STEP 2: Does the patient need only setup/clean-up assistance from one helper? No. 12 STEPS - STEP 3: Does the patient need only verbal/nonverbal cueing or touching/steadying/contact guard assistance fro m one helper? Yes. 1. [id number] ADMISSION PERFORMANCE: Supervision or touching assistance CODE: 04 PICKING UP OBJECT: PICKING UP OBJECT - STEP 1: Does the patient complete the activity by him/herself with no assistance (physical, verbal/nonverbal cueing, setup/clean-up)? No. PICKING UP OBJECT - STEP 2: Does the patient need only setup/clean-up assistance from one helper? No. PICKING UP OBJECT - STEP 3: Does the patient need only verbal/nonverbal cueing or touching/steadying/contact guard assistance fro m one helper? Yes. 1. [id number] ADMISSION PERFORMANCE: Supervision or touching assistance CODE: 04 DOES THE PATIENT USE A WHEELCHAIR/SCOOTER? Q1. DOES THE PATIENT USE A WHEELCHAIR/SCOOTER?: No CODE: 0 INDICATE THE TYPE OF WHEELCHAIR/SCOOTER USED: CODE: EXPR INDICATE THE TYPE OF WHEELCHAIR/SCOOTER USED: CODE: EXPR BLADDER AND BOWEL: CODE: EXPR CODE: EXPR SIGNATURE PANEL: The following modified sections: 1. [id number] Admission Performance, 1. [id number] Admission Performance, 1. [id number] Admission Performance, 1. [id number] Admission Performance, 1. [id number] Admission Performance, 1. [id number] Admission Performance, 1. [id number] Admission Performance, 1. [id number] Admission Performance , 1. [id number] Admission Performance, 1. [id number] Admission Performance, 1. [id number] Admission Performanc e, 1. [id number] Admission Performance, 1. [id number] Admission Performance, 1. [id number] Admission Performan ce, Q1. Does the patient use a wheelchair/scooter? were [electronically] signed by Jose Talbert PT on SunMar 06 2019 17:34:37 GMT-0600 (Central Standard Time)
--- NOTE | 2019-03-06 19:11 | R.PN ---
ENCOUNTER DATE AND TIME: 03/06/2019 19:08 (AUXILIARY EQUIPMENT OPERATOR) NAME GLORIA CARNEY DATE OF : 1945 DATE OF ADMISSION: 02/24/2019 17:59 (AUXILIARY EQUIPMENT OPERATOR) Left Hip FractureCHIEF COMPLAINT: Left hip fracture SUBJECTIVE: Pt denied any depression. Pt denied any Shortness of Breath. She reports a moderate decrease in left lateral leg and foot pain. Ambulated 250' with rolling walker with standby assistance. Self-propelled wheelchair 250' with independence. WBC 5.3, Hgb 8.5 and stable. She is on hemocyte plus and ferrous sulfate. Prealbumin improved to 14.5 She is on promod. A pain patch is added to her left lateral leg and Tramadol frequency is increased to q 4 hours. She performed ADLs with minimum assistance to supervision. VITAL SIGNS Temperature: 97.4 F SBP/DBP: 129/58 Pulse: 76 Resp: 16 MEDICATION ALLERGIES: No Known Drug Allergies (NKDA) ENVIRONMENTAL ALLERGIES: - Substance Allergies None Known - Other Allergies None Known NURSING: - Shower allowing shower - Skin care per protocol PRECAUTIONS: - Anterior Hip Precaution No abduction No active extension No adduction across midline No external rotation No hip flexion >90 degrees No internal rotation - Posterior Hip Precaution No external rotation No hip flexion >90 degrees No internal rotation No wheel chair propulsion - Weight Bearing Precaution WBAT left LE ACTIVITIES OOB only with supervision THERAPIES: - Dietary and Nutrition Adequate Nutrition. Nutritional Education. Nutritional Supplements. PHYSICAL EXAM - Gen Interactive Oriented to: person, time, and place In distress secondary to decline of status Alert and awake - Skin No breakdown Normacephalic - Eyes Mild bruise over the left lateral eye. - ENMT No abnormalities - Neck No abnormalities - CVS RRR - Chest No abnormalities - Resp Clear to auscultation - Abd + bowel sound - GI Non distended Deferred - No abnormalities - Ext Mild postoperative edema in the left lower extremity - MSK 4+/5 weakness in left lower extremity - Neuro 4/5 strength left lower extremity. - Psych Mild depression. ASSESSMENT: Pt. is a 73 yo Right-handed white female.On 02/18/2019 she was admitted to [facility] and underwent emergen cy surgery for Left Hip Fracture (Unilateral Hip Fracture) by Abram Dutta MD.Pre-morbidly, Pt. was in dependent/mod-I in Locomotion, Safety Awareness, Balance, and Self-Care; and she had good Social Cogn ition, Transfers Control, Sphincter Control, Communication, and Endurance.Currently, she has deficits of Locomotion, Safety Awareness, Self-Care, Balance, Transfers Control, Social Cognition, Sphincter Control, and Endurance.Pt. is now referred to [facility] for acute in-patient rehabilitation in order to maximize patient's functional independence in activities of daily living, strength, ROM, and mobility.- Rehab Goal Patient has realistic goal of being discharged at assistance level 6-Mike to reside at Home with Fam jenn/Relatives. MDM/PLAN: - Physical Therapy Weakness - to improve, our physical therapists will perform initial evaluation of pt's status upon a dmission and devise an individualized program for Aquatic Therapy, Neuromuscular Reeducation, and Str engthening Poor balance - to improve, our physical therapists will perform initial evaluation of pt's status up on admission and devise an individualized program for Balance Training Inability to transfer - to improve, our physical therapists will perform initial evaluation of pt's status upon admission and devise an individualized program for Bed mobility Decreased range of motion - to improve, our physical therapists will perform initial evaluation of p t's status upon admission and devise an individualized program for increasing patient's Range of Guillermo on. Need in caregiver upon discharge - to improve, our physical therapists will perform initial evaluati on of pt's status upon admission and devise an individualized program for Caregiver Training Poor endurance - to improve, our physical therapists will perform initial evaluation of pt's status upon admission and devise an individualized program for Endurance Training Gait dysfunction - to improve, our physical therapists will perform initial evaluation of pt's statu s upon admission and devise an individualized program for Gait Training, and Wheel Chair mobility Need for home safety evaluation - to improve, our physical therapists will perform initial evaluatio n of pt's status upon admission and devise an individualized program for Home Evaluation New precaution - to improve, our physical therapists will perform initial evaluation of pt's status upon admission and devise an individualized program for Patient precaution education Edema - to improve, our physical therapists will perform initial evaluation of pt's status upon admi ssion and devise an individualized program for Elevation Training, and Lymphedema Therapy - Occupational Therapy Weakness - to improve, our occupation therapists will perform initial evaluation of pt's status upon admission and devise an individualized program for Aquatic Therapy, Balance, Endurance, UE ROM, and UE strengthening ADL deficits - to improve, our occupation therapists will perform initial evaluation of pt's status upon admission and devise an individualized program for Bathing, Bed mobility, Community Reintegratio n, Cooking, Dressing, Eating, Fine Motor Skills, Grooming, Homemaking, Kitchen Mobility, Laundry, Pat ient Education, Safety Awareness, Splinting - Positioning, Transfers(Toilet, Tub, Shower), and Wheel Chair Management Need for managed care analyst - to improve, our occupation therapists will perform initial evaluation of pt's status upon admission and devise an individualized program for Caregiver Training Cognitive deficits - to improve, our occupation therapists will perform initial evaluation of pt's s tatus upon admission and devise an individualized program for Cognition - orientation - Other See attached MAR (Medication Administration Record) - Anterior Hip Precaution No abduction No active extension No adduction across midline No external rotation No hip flexion >90 degrees No internal rotation - Diet - Liquid Texture Continue Regular - Tube Feed Continue N/A - Diet Type Continue Regular - Posterior Hip Precaution No external rotation No hip flexion >90 degrees No internal rotation No wheel chair propulsion - Weight Bearing Precaution WBAT left LE - Skin care per protocol - Diet - Solid Texture Continue Regular - Shower allowing shower - Balance for Weakness - Bed mobility for ADL deficits FUNCTIONAL STATUS: UPDATED AT WEEKLY TEAM CONFERENCE - Bladder Same accident frequency: 7-Ind - No accidents in the past 7 days - Bowel Same accident frequency: 7-Ind - No accidents in the past 7 days - Walking Same score based on distance walked: 0(N/A) - Wheelchair Same score based on distance traveled: 0(N/A) FUNCTIONAL STATUS: - Self-Care A. Eating Mike B. Grooming Mike C. Bathing Boby D. Dressing - Upper Boby E. Dressing - Lower modA F. Toileting Boby - Sphincter Control G. Bladder control Mike H. Bowel control Mike - Transfers Control I. Bed/Chair/Wheelchair Boby J. Toilet Boby K. Tub/Shower Boby - Locomotion L. Walk/Wheelchair (B) sup M. Stairs maxA - Communication N. Comprehension (B) Ind O. Expression (B) Ind - Social Cognition P. Social Interaction Ind Q. Problem Solving Ind R. Memory Ind - Endurance Good - Balance Good - Safety Awareness Good QI SCORES: - Self-Care A. Eating 06-Independent B. Oral hygiene 06-Independent C. Toileting hygiene 02-Substantial/maximal assistance E. Shower/bathe self 02-Substantial/maximal assistance F. Upper body dressing 05-Setup or clean-up assistance G. Lower body dressing 01-Dependent H. Putting on/taking off footwear 01-Dependent - Mobility A. Roll left and right 04-Supervision or touching assistance B. Sit to lying 04-Supervision or touching assistance C. Lying to sitting on side of bed 04-Supervision or touching assistance D. Sit to stand 04-Supervision or touching assistance E. Chair/pde-cu-grkje transfer 04-Supervision or touching assistance F. Toilet transfer 04-Supervision or touching assistance G. Car transfer 88-Not attempted due to medical condition or safety concerns I. Walk 10 feet 04-Supervision or touching assistance J. Walk 50 feet with two turns 10-Not attempted due to environmental limitations K. Walk 150 feet 04-Supervision or touching assistance L. Walking 10 feet on uneven surfaces 10-Not attempted due to environmental limitations M. 1 step (curb) 10-Not attempted due to environmental limitations N. 4 steps 10-Not attempted due to environmental limitations O. 12 steps 10-Not attempted due to environmental limitations P. Picking up object 10-Not attempted due to environmental limitations R. Wheel 50 feet with two turns S. Wheel 150 feet - Bladder and Bowel Bladder continence 0-Always continent Bowel continence 9-Not rated - Endurance Fair - Balance Poor - Safety Awareness Poor CURRENT FUNC. DEFICITS: Endurance, Balance, Mobility, Safety Awareness, and Self-Care SIGNATURE PANEL: (AUXILIARY EQUIPMENT OPERATOR)
[2019-03-06] MEDS: BACLOFEN 10 MG TAB PO PRN (20:14)
[2019-03-07] MEDS: ENOXAPARIN 40 MG/0.4 ML SQ SCH (06:40)
[2019-03-07] MEDS: TRAMADOL HCL 50 MG TAB PO PRN ×2 (08:14→12:36)
[2019-03-07] MEDS: FERROUS SULFATE 325 MG TAB PO SCH (08:14)
[2019-03-07] MEDS: CITALOPRAM 10 MG TABLET PO SCH (08:14)
[2019-03-07] MEDS: LIDOCAINE 4% PATCH TOP SCH (08:14)
[2019-03-07] MEDS: FE SULF/FA/VIT B COMP & C TAB PO SCH (08:14)
[2019-03-07] MEDS: PROMOD 30 ML DOSE PO SCH ×2 (08:17→19:59)
--- NOTE | 2019-03-07 09:52 | P.RH.PN ---
Estimated Length of Stay: 16 Expected Discharge Date: 03/11/19 Discharge Disposition Plan: Home Family Support: Yes [facility] Goal: Mobility, Transfers, Self Care Vital Signs: Last Vital Signs Temp 97.8 F 03/07/19 06:50 Pulse 71 03/07/19 06:50 Resp 16 03/07/19 09:14 BP 126/60 03/07/19 06:50 Pulse Ox 100 03/07/19 09:14 Laboratory: Laboratory Last Values WBC 5.3 K/uL (4.3-10.9) 03/06/19 05:39 RBC 2.96 M/uL (3.86-4.86) L 03/06/19 05:39 Hgb 8.5 g/dL (12.0-15.0) L 03/06/19 05:39 Hct 25.8 % (36.0-45.0) L 03/06/19 05:39 MCV 87.1 fL (80-100) 03/06/19 05:39 MCH 28.7 pg (27.0-35.0) 03/06/19 05:39 MCHC 32.9 g/dL (32.0-36.0) 03/06/19 05:39 RDW 14.9 % (12.1-15.2) 03/06/19 05:39 Plt Count 130 K/uL (152-406) L 03/06/19 05:39 MPV 12.0 fL (7.6-11.3) H 03/06/19 05:39 Neutrophils % 70.8 % (41.7-73.7) 03/06/19 05:39 Lymphocytes % 18.4 % (15.3-44.8) 03/06/19 05:39 Monocytes % 9.6 % (3.3-12.3) 03/06/19 05:39 Eosinophils % 0.4 % (0-4.4) 03/06/19 05:39 Basophils % 0.8 % (0-1.3) 03/06/19 05:39 Absolute Neutrophils 3.8 K/uL (1.8-8.0) 03/06/19 05:39 Absolute Lymphocytes 1.0 K/uL (0.7-4.9) 03/06/19 05:39 Absolute Monocytes 0.5 K/uL (0.1-1.3) 03/06/19 05:39 Absolute Eosinophils 0.0 K/uL (0-0.5) 03/06/19 05:39 Absolute Basophils 0.0 K/uL (0-0.5) 03/06/19 05:39 Sodium 142 mmol/L (136-145) 03/06/19 05:39 Potassium 4.3 mmol/L (3.5-5.1) 03/06/19 05:39 Chloride 108 mmol/L (98-107) H 03/06/19 05:39 Carbon Dioxide 30 mmol/L (21-32) 03/06/19 05:39 BUN 21 mg/dL (7-18) H 03/06/19 05:39 Creatinine 0.86 mg/dL (0.55-1.3) 03/06/19 05:39 Estimated GFR 65 mL/min (=/>90) L 03/06/19 05:39 Glucose 110 mg/dL (74-106) H 03/06/19 05:39 Calcium 8.5 mg/dL (8.5-10.1) 03/06/19 05:39 Magnesium 2.7 mg/dL (1.8-2.4) H 03/06/19 05:39 Albumin 2.6 g/dL (3.4-5.0) L 03/06/19 05:39 Prealbumin 14.5 mg/dL (20-40) L 03/06/19 05:39 Urine Color Yellow 02/24/19 18:55 Urine Appearance Clear 02/24/19 18:55 Urine pH 6.0 (5.0-7.0) 02/24/19 18:55 Ur Specific [place] 1.015 (1.005-1.030) 02/24/19 18:55 Urine Ketones Negative (NEG) 02/24/19 18:55 Urine Blood Negative (NEG) 02/24/19 18:55 Urine Nitrite Negative (NEG) 02/24/19 18:55 Urine Bilirubin Negative (NEG) 02/24/19 18:55 Urine Urobilinogen 1.0 mg/dL (0.2-1.0) 02/24/19 18:55 Ur Leukocyte Esterase 1+ (NEG) H 02/24/19 18:55 Urine RBC <5 /HPF (NONE SEEN) 02/24/19 18:55 Urine WBC 10-20 /HPF (<5) H 02/24/19 18:55 Ur Squamous Epith Cells 5-10 /HPF (NONE SEEN) H 02/24/19 18:55 Urine Bacteria <20 /HPF (<20) 02/24/19 18:55 Urine Mucus 1+ /HPF (NONE SEEN) 02/24/19 18:55 Urine Culture Reflexed Not needed 02/24/19 18:55 Urine Glucose Negative (NEG) 02/24/19 18:55 Urine Total Protein Negative (NEG) 02/24/19 18:55 Weight: 125 lb Wound Present: No Closed Surgical Incision Present: Yes Negative Pressure Wound Therapy Present: No Physician Update: Labs reviewed and Hbg is stable but low at 8.4. She is taking hemocyte plus. She is doing well with physical and occupational therapy at standby assistance. Medical Issues: Patient is always continent with bladder and bowel Pain Issues: Patient is taking Tramadol 50mg Q6H PO PRN Functional Improvement: pt has demonstrated progress throughout the duration of therapy. pt is improving her balance and stability during ambulation and functional transfers. pt continues to require skilled PT services to become Independent with all functional mobility to ensure a safe home discharge. Speech Therapy Update: Pt presents with min cognitive deficits that appear to be more related to psych and/or social-pragmatic impairments. Pt is verbose and requires repeated instruction and redirection to remain on task. She is extremely detail oriented and has a good memory. Patient does not read facial expressions and even present with a flat affect. However, she is cooperative and appears to be at her baseline level of functioning. Summary: Patient's care plan and fpc goals have been reviewed and revised as necessary. Please see the Rehabilitation Signature page for all necessary signatures.
--- NOTE | 2019-03-07 15:24 | FAST ---
ENCOUNTER DATE AND TIME: 03/07/2019 08:00 (PEAR PICKER) NAME GLORIA CARNEY DATE OF : 1945 DATE OF ADMISSION: 02/24/2019 17:59 (PEAR PICKER) PHONE: AGE: 73 N# [id number] GENDER: Female ENCOUNTER PHYSICIAN: Dr. Dontrell Blevins M.D. ADMISSION DIAGNOSIS: - Orthopaedic Disorders 08 - Unilateral Hip Fracture (08.11) Left Hip Fracture. EATING: Not assessed/no information CODE: - ORAL HYGIENE: ORAL HYGIENE - STEP 1: Does the patient complete the activity by him/herself with no assistance (physical, verbal/nonverbal cueing, setup/clean-up)? Yes. 1. [id number] ADMISSION PERFORMANCE: Independent CODE: 06 TOILETING HYGIENE: Not assessed/no information CODE: - BATHING: SHOWER/BATHE SELF - STEP 1: Does the patient complete the activity by him/herself with no assistance (physical, verbal/nonverbal cueing, setup/clean-up)? Yes. 1. [id number] ADMISSION PERFORMANCE: Independent CODE: 06 DRESSING - UPPER BODY: DRESSING - UPPER BODY - STEP 1: Does the patient complete the activity by him/herself with no assistance (physical, verbal/nonverbal cueing, setup/clean-up)? Yes. 1. ADMISSION PERFORMANCE: Independent CODE: 06 DRESSING - LOWER BODY: DRESSING - LOWER BODY - STEP 1: Does the patient complete the activity by him/herself with no assistance (physical, verbal/nonverbal cueing, setup/clean-up)? Yes. 1. [id number] ADMISSION PERFORMANCE: Independent CODE: 06 PUTTING ON/TAKING OFF FOOTWEAR: FOOTWEAR - STEP 1: Does the patient complete the activity by him/herself with no assistance (physical, verbal/nonverbal cueing, setup/clean-up)? Yes. 1. [id number] ADMISSION PERFORMANCE: Independent CODE: 06 DOES THE PATIENT USE A WHEELCHAIR/SCOOTER? CODE: EXPR INDICATE THE TYPE OF WHEELCHAIR/SCOOTER USED: CODE: EXPR INDICATE THE TYPE OF WHEELCHAIR/SCOOTER USED: CODE: EXPR BLADDER AND BOWEL: CODE: EXPR CODE: EXPR SIGNATURE PANEL: The following modified sections: 1. [id number] Admission Performance, 1. [id number] Admission Performance, 1. [id number] Admission Performance, 1. [id number] Admission Performance, 1. [id number] Admission Performance were [electronically] signed by LATRICIA Coffman on SunMar 07 2019 15:24:00 GMT-0600 (Central Standard Time)
[2019-03-07] MEDS: BACLOFEN 10 MG TAB PO PRN (20:00)
[2019-03-08] MEDS: TRAMADOL HCL 50 MG TAB PO PRN ×3 (02:05→11:52)
--- NOTE | 2019-03-08 03:05 | FAST ---
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 Dontrell Blevins M.D. ADMISSION DIAGNOSIS: - Orthopaedic Disorders 08 - Unilateral Hip Fracture (08.11) Left Hip Fracture. EATING: Not assessed/no information CODE: - ORAL HYGIENE: ORAL HYGIENE - STEP 1: Does the patient complete the activity by him/herself with no assistance (physical, verbal/nonverbal cueing, setup/clean-up)? No. ORAL HYGIENE - STEP 2: Does the patient need only setup/clean-up assistance from one helper? No. ORAL HYGIENE - STEP 3: Does the patient need only verbal/nonverbal cueing or touching/steadying/contact guard assistance fro m one helper? Yes. 1. [id number] ADMISSION PERFORMANCE: Supervision or touching assistance CODE: 04 TOILETING HYGIENE: TOILETING HYGIENE - STEP 1: Does the patient complete the activity by him/herself with no assistance (physical, verbal/nonverbal cueing, setup/clean-up)? No. TOILETING HYGIENE - STEP 2: Does the patient need only setup/clean-up assistance from one helper? No. TOILETING HYGIENE - STEP 3: Does the patient need only verbal/nonverbal cueing or touching/steadying/contact guard assistance fro m one helper? Yes. 1. [id number] ADMISSION PERFORMANCE: Supervision or touching assistance CODE: 04 BATHING: Not assessed/no information CODE: - DRESSING - UPPER BODY: Not assessed/no information CODE: - DRESSING - LOWER BODY: Not assessed/no information CODE: - PUTTING ON/TAKING OFF FOOTWEAR: Not assessed/no information CODE: - ROLL LEFT AND RIGHT: ROLL LEFT AND RIGHT - STEP 1: Does the patient complete the activity by him/herself with no assistance (physical, verbal/nonverbal cueing, setup/clean-up)? No. ROLL LEFT AND RIGHT - STEP 2: Does the patient need only setup/clean-up assistance from one helper? No. ROLL LEFT AND RIGHT - STEP 3: Does the patient need only verbal/nonverbal cueing or touching/steadying/contact guard assistance fro m one helper? Yes. 1. [id number] ADMISSION PERFORMANCE: Supervision or touching assistance CODE: 04 SIT TO LYING: SIT TO LYING - STEP 1: Does the patient complete the activity by him/herself with no assistance (physical, verbal/nonverbal cueing, setup/clean-up)? No. SIT TO LYING - STEP 2: Does the patient need only setup/clean-up assistance from one helper? No. SIT TO LYING - STEP 3: Does the patient need only verbal/nonverbal cueing or touching/steadying/contact guard assistance fro m one helper? Yes. 1. [id number] ADMISSION PERFORMANCE: Supervision or touching assistance CODE: 04 LYING TO SITTING: LYING TO SITTING ON SIDE OF BED - STEP 1: Does the patient complete the activity by him/herself with no assistance (physical, verbal/nonverbal cueing, setup/clean-up)? No. LYING TO SITTING ON SIDE OF BED - STEP 2: Does the patient need only setup/clean-up assistance from one helper? No. LYING TO SITTING ON SIDE OF BED - STEP 3: Does the patient need only verbal/nonverbal cueing or touching/steadying/contact guard assistance fro m one helper? Yes. 1. [id number] ADMISSION PERFORMANCE: Supervision or touching assistance CODE: 04 SIT TO STAND: SIT TO STAND - STEP 1: Does the patient complete the activity by him/herself with no assistance (physical, verbal/nonverbal cueing, setup/clean-up)? No. SIT TO STAND - STEP 2: Does the patient need only setup/clean-up assistance from one helper? No. SIT TO STAND - STEP 3: Does the patient need only verbal/nonverbal cueing or touching/steadying/contact guard assistance fro m one helper? Yes. 1. [id number] ADMISSION PERFORMANCE: Supervision or touching assistance CODE: 04 TRANSFERS: BED, CHAIR: CHAIR/[id number] TRANSFER - STEP 1: Does the patient complete the activity by him/herself with no assistance (physical, verbal/nonverbal cueing, setup/clean-up)? No. CHAIR/[id number] TRANSFER - STEP 2: Does the patient need only setup/clean-up assistance from one helper? No. CHAIR/[id number] TRANSFER - STEP 3: Does the patient need only verbal/nonverbal cueing or touching/steadying/contact guard assistance fro m one helper? Yes. 1. [id number] ADMISSION PERFORMANCE: Supervision or touching assistance CODE: 04 TRANSFER TOILET: TOILET TRANSFER - STEP 1: Does the patient complete the activity by him/herself with no assistance (physical, verbal/nonverbal cueing, setup/clean-up)? No. TOILET TRANSFER - STEP 2: Does the patient need only setup/clean-up assistance from one helper? No. TOILET TRANSFER - STEP 3: Does the patient need only verbal/nonverbal cueing or touching/steadying/contact guard assistance fro m one helper? Yes. 1. [id number] ADMISSION PERFORMANCE: Supervision or touching assistance CODE: 04 TRANSFERS: CAR: Not assessed/no information CODE: - WALK 10 FEET: Not assessed/no information CODE: - 1 STEP (CURB): Not assessed/no information CODE: - PICKING UP OBJECT: Not assessed/no information CODE: - DOES THE PATIENT USE A WHEELCHAIR/SCOOTER? CODE: EXPR WHEEL 50 FEET WITH TWO TURNS: Not assessed/no information CODE: - INDICATE THE TYPE OF WHEELCHAIR/SCOOTER USED: CODE: EXPR WHEEL 150 FEET: Not assessed/no information CODE: - INDICATE THE TYPE OF WHEELCHAIR/SCOOTER USED: CODE: EXPR BLADDER AND BOWEL: H350. BLADDER CONTINENCE (3-DAY ASSESSMENT PERIOD): Always continent (no documented incontinence) CODE: 0 H400. BOWEL CONTINENCE (3-DAY ASSESSMENT PERIOD): Always continent CODE: 0
[2019-03-08 05:59] VITALS: BMI 22.4
[2019-03-08] MEDS: LIDOCAINE 4% PATCH TOP SCH (08:19)
[2019-03-08] MEDS: ENOXAPARIN 40 MG/0.4 ML SQ SCH (08:19)
[2019-03-08] MEDS: FERROUS SULFATE 325 MG TAB PO SCH (08:20)
[2019-03-08] MEDS: FE SULF/FA/VIT B COMP & C TAB PO SCH (08:20)
[2019-03-08] MEDS: GABAPENTIN 100 MG CAP PO SCH (08:20)
[2019-03-08] MEDS: PROMOD 30 ML DOSE PO SCH ×2 (08:21→20:39)
[2019-03-08] MEDS: CITALOPRAM 10 MG TABLET PO SCH (08:21)
[2019-03-08] MEDS: BACLOFEN 10 MG TAB PO PRN (23:32)
[2019-03-09] MEDS: TRAMADOL HCL 50 MG TAB PO PRN ×2 (07:23→20:14)
[2019-03-09] MEDS: LIDOCAINE 4% PATCH TOP SCH (07:24)
[2019-03-09] MEDS: ENOXAPARIN 40 MG/0.4 ML SQ SCH (07:24)
[2019-03-09] MEDS: FE SULF/FA/VIT B COMP & C TAB PO SCH (08:08)
[2019-03-09] MEDS: CITALOPRAM 10 MG TABLET PO SCH (08:08)
[2019-03-09] MEDS: FERROUS SULFATE 325 MG TAB PO SCH (08:08)
[2019-03-09] MEDS: PROMOD 30 ML DOSE PO SCH ×2 (08:08→20:14)
[2019-03-09] MEDS: GABAPENTIN 100 MG CAP PO SCH (08:08)
[2019-03-10] MEDS: ENOXAPARIN 40 MG/0.4 ML SQ SCH (07:08)
[2019-03-10] MEDS: TRAMADOL HCL 50 MG TAB PO PRN ×3 (07:08→19:37)
[2019-03-10] MEDS: LIDOCAINE 4% PATCH TOP SCH (07:17)
[2019-03-10] MEDS: FE SULF/FA/VIT B COMP & C TAB PO SCH (08:39)
[2019-03-10] MEDS: CITALOPRAM 10 MG TABLET PO SCH (08:39)
[2019-03-10] MEDS: PROMOD 30 ML DOSE PO SCH ×2 (08:40→19:36)
[2019-03-10] MEDS: FERROUS SULFATE 325 MG TAB PO SCH (08:40)
[2019-03-10] MEDS: GABAPENTIN 100 MG CAP PO SCH (08:40)
--- NOTE | 2019-03-10 11:11 | FAST ---
SHIFT START DATE/TIME: 03/10/2019 07:00 (HIDE TRIMMER) SHIFT END DATE/TIME: 03/10/2019 19:00 (HIDE TRIMMER) NAME GLORIA CARNEY DATE OF : 1945 DATE OF ADMISSION: 02/24/2019 17:59 (HIDE TRIMMER) PHONE: AGE: 73 N# [id number] GENDER: Female ENCOUNTER PHYSICIAN: Dr. Dontrell Blevins M.D. ADMISSION DIAGNOSIS: - Orthopaedic Disorders 08 - Unilateral Hip Fracture (08.11) Left Hip Fracture. EATING: EATING - STEP 1: Does the patient complete the activity by him/herself with no assistance (physical, verbal/nonverbal cueing, setup/clean-up)? No. EATING - STEP 2: Does the patient need only setup/clean-up assistance from one helper? No. EATING - STEP 3: Does the patient need only verbal/nonverbal cueing or touching/steadying/contact guard assistance fro m one helper? Yes. 1. [id number] ADMISSION PERFORMANCE: Supervision or touching assistance CODE: 04 ORAL HYGIENE: ORAL HYGIENE - STEP 1: Does the patient complete the activity by him/herself with no assistance (physical, verbal/nonverbal cueing, setup/clean-up)? No. ORAL HYGIENE - STEP 2: Does the patient need only setup/clean-up assistance from one helper? No. ORAL HYGIENE - STEP 3: Does the patient need only verbal/nonverbal cueing or touching/steadying/contact guard assistance fro m one helper? Yes. 1. [id number] ADMISSION PERFORMANCE: Supervision or touching assistance CODE: 04 TOILETING HYGIENE: TOILETING HYGIENE - STEP 1: Does the patient complete the activity by him/herself with no assistance (physical, verbal/nonverbal cueing, setup/clean-up)? No. TOILETING HYGIENE - STEP 2: Does the patient need only setup/clean-up assistance from one helper? No. TOILETING HYGIENE - STEP 3: Does the patient need only verbal/nonverbal cueing or touching/steadying/contact guard assistance fro m one helper? Yes. 1. [id number] ADMISSION PERFORMANCE: Supervision or touching assistance CODE: 04 BATHING: Not assessed/no information CODE: - DRESSING - UPPER BODY: Not assessed/no information CODE: - DRESSING - LOWER BODY: Not assessed/no information CODE: - PUTTING ON/TAKING OFF FOOTWEAR: Not assessed/no information CODE: - ROLL LEFT AND RIGHT: ROLL LEFT AND RIGHT - STEP 1: Does the patient complete the activity by him/herself with no assistance (physical, verbal/nonverbal cueing, setup/clean-up)? No. ROLL LEFT AND RIGHT - STEP 2: Does the patient need only setup/clean-up assistance from one helper? No. ROLL LEFT AND RIGHT - STEP 3: Does the patient need only verbal/nonverbal cueing or touching/steadying/contact guard assistance fro m one helper? Yes. 1. [id number] ADMISSION PERFORMANCE: Supervision or touching assistance CODE: 04 SIT TO LYING: SIT TO LYING - STEP 1: Does the patient complete the activity by him/herself with no assistance (physical, verbal/nonverbal cueing, setup/clean-up)? No. SIT TO LYING - STEP 2: Does the patient need only setup/clean-up assistance from one helper? No. SIT TO LYING - STEP 3: Does the patient need only verbal/nonverbal cueing or touching/steadying/contact guard assistance fro m one helper? Yes. 1. [id number] ADMISSION PERFORMANCE: Supervision or touching assistance CODE: 04 LYING TO SITTING: LYING TO SITTING ON SIDE OF BED - STEP 1: Does the patient complete the activity by him/herself with no assistance (physical, verbal/nonverbal cueing, setup/clean-up)? No. LYING TO SITTING ON SIDE OF BED - STEP 2: Does the patient need only setup/clean-up assistance from one helper? No. LYING TO SITTING ON SIDE OF BED - STEP 3: Does the patient need only verbal/nonverbal cueing or touching/steadying/contact guard assistance fro m one helper? Yes. 1. [id number] ADMISSION PERFORMANCE: Supervision or touching assistance CODE: 04 SIT TO STAND: SIT TO STAND - STEP 1: Does the patient complete the activity by him/herself with no assistance (physical, verbal/nonverbal cueing, setup/clean-up)? No. SIT TO STAND - STEP 2: Does the patient need only setup/clean-up assistance from one helper? No. SIT TO STAND - STEP 3: Does the patient need only verbal/nonverbal cueing or touching/steadying/contact guard assistance fro m one helper? Yes. 1. [id number] ADMISSION PERFORMANCE: Supervision or touching assistance CODE: 04 TRANSFERS: BED, CHAIR: CHAIR/[id number] TRANSFER - STEP 1: Does the patient complete the activity by him/herself with no assistance (physical, verbal/nonverbal cueing, setup/clean-up)? No. CHAIR/[id number] TRANSFER - STEP 2: Does the patient need only setup/clean-up assistance from one helper? No. CHAIR/[id number] TRANSFER - STEP 3: Does the patient need only verbal/nonverbal cueing or touching/steadying/contact guard assistance fro m one helper? Yes. 1. [id number] ADMISSION PERFORMANCE: Supervision or touching assistance CODE: 04 TRANSFER TOILET: TOILET TRANSFER - STEP 1: Does the patient complete the activity by him/herself with no assistance (physical, verbal/nonverbal cueing, setup/clean-up)? No. TOILET TRANSFER - STEP 2: Does the patient need only setup/clean-up assistance from one helper? No. TOILET TRANSFER - STEP 3: Does the patient need only verbal/nonverbal cueing or touching/steadying/contact guard assistance fro m one helper? Yes. 1. [id number] ADMISSION PERFORMANCE: Supervision or touching assistance CODE: 04 TRANSFERS: CAR: Not assessed/no information CODE: - WALK 10 FEET: Not assessed/no information CODE: - 1 STEP (CURB): Not assessed/no information CODE: - PICKING UP OBJECT: Not assessed/no information CODE: - DOES THE PATIENT USE A WHEELCHAIR/SCOOTER? CODE: EXPR WHEEL 50 FEET WITH TWO TURNS: Not assessed/no information CODE: - INDICATE THE TYPE OF WHEELCHAIR/SCOOTER USED: CODE: EXPR WHEEL 150 FEET: Not assessed/no information CODE: - INDICATE THE TYPE OF WHEELCHAIR/SCOOTER USED: CODE: EXPR BLADDER AND BOWEL: H350. BLADDER CONTINENCE (3-DAY ASSESSMENT PERIOD): Always continent (no documented incontinence) CODE: 0 H400. BOWEL CONTINENCE (3-DAY ASSESSMENT PERIOD): Always continent CODE: 0 SIGNATURE PANEL: The following modified sections: 1. [id number] Admission Performance, 1. [id number] Admission Performance, 1. [id number] Admission Performance, 1. [id number] Admission Performance, 1. [id number] Admission Performance, 1. [id number] Admission Performance, 1. [id number] Admission Performance, 1. [id number] Admission Performance , 1. [id number] Admission Performance, Code, H350. Bladder Continence (3-day assessment period), H400. B owel Continence (3-day assessment period) were [electronically] signed by Lewis Kan on SunMar 10 11:10:10 T-0600 (Central Standard Time)
--- NOTE | 2019-03-10 12:28 | FAST ---
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 Dontrell Blevins M.D. ADMISSION DIAGNOSIS: - Orthopaedic Disorders 08 - Unilateral Hip Fracture (08.11) Left Hip Fracture. EATING: Not assessed/no information CODE: - ORAL HYGIENE: ORAL HYGIENE - STEP 1: Does the patient complete the activity by him/herself with no assistance (physical, verbal/nonverbal cueing, setup/clean-up)? Yes. 1. [id number] ADMISSION PERFORMANCE: Independent CODE: 06 TOILETING HYGIENE: Not assessed/no information CODE: - BATHING: SHOWER/BATHE SELF - STEP 1: Does the patient complete the activity by him/herself with no assistance (physical, verbal/nonverbal cueing, setup/clean-up)? Yes. 1. [id number] ADMISSION PERFORMANCE: Independent CODE: 06 DRESSING - UPPER BODY: DRESSING - UPPER BODY - STEP 1: Does the patient complete the activity by him/herself with no assistance (physical, verbal/nonverbal cueing, setup/clean-up)? Yes. 1. ADMISSION PERFORMANCE: Independent CODE: 06 DRESSING - LOWER BODY: DRESSING - LOWER BODY - STEP 1: Does the patient complete the activity by him/herself with no assistance (physical, verbal/nonverbal cueing, setup/clean-up)? Yes. 1. [id number] ADMISSION PERFORMANCE: Independent CODE: 06 PUTTING ON/TAKING OFF FOOTWEAR: FOOTWEAR - STEP 1: Does the patient complete the activity by him/herself with no assistance (physical, verbal/nonverbal cueing, setup/clean-up)? Yes. 1. [id number] ADMISSION PERFORMANCE: Independent CODE: 06 DOES THE PATIENT USE A WHEELCHAIR/SCOOTER? CODE: EXPR INDICATE THE TYPE OF WHEELCHAIR/SCOOTER USED: CODE: EXPR INDICATE THE TYPE OF WHEELCHAIR/SCOOTER USED: CODE: EXPR BLADDER AND BOWEL: CODE: EXPR CODE: EXPR SIGNATURE PANEL: The following modified sections: 1. [id number] Admission Performance, 1. [id number] Admission Performance, 1. [id number] Admission Performance, 1. [id number] Admission Performance, 1. [id number] Admission Performance were [electronically] signed by LATRICIA Coffman on SunMar 10 2019 12:27:02 GMT-0600 (Central Standard Time)
--- NOTE | 2019-03-10 18:36 | R.PN ---
ENCOUNTER DATE AND TIME: 03/10/2019 18:34 (STEWARD/STEWARDESS SMOKE ROOM) NAME GLORIA CARNEY DATE OF : 1945 DATE OF ADMISSION: 02/24/2019 17:59 (STEWARD/STEWARDESS SMOKE ROOM) Left Hip FractureCHIEF COMPLAINT: Left hip fracture SUBJECTIVE: Pt denied any depression. Pt denied any Shortness of Breath. WBC 5.3, Hgb 8.5 and stable. She is on hemocyte plus and ferrous sulfate. Prealbumin improved to 14.5 She is on promod. A pain patch is added to her left lateral leg and Tramadol frequency is increased to q 4 hours. She performed ADLs with minimum assistance to supervision. She ambulated 1000' with standby assistance using a rolling walker. VITAL SIGNS Temperature: 97.6 F SBP/DBP: 138/63 Pulse: 78 Resp: 16 MEDICATION ALLERGIES: No Known Drug Allergies (NKDA) ENVIRONMENTAL ALLERGIES: - Substance Allergies None Known - Other Allergies None Known NURSING: - Shower allowing shower - Skin care per protocol PRECAUTIONS: - Anterior Hip Precaution No abduction No active extension No adduction across midline No external rotation No hip flexion >90 degrees No internal rotation - Posterior Hip Precaution No external rotation No hip flexion >90 degrees No internal rotation No wheel chair propulsion - Weight Bearing Precaution WBAT left LE ACTIVITIES OOB only with supervision THERAPIES: - Dietary and Nutrition Adequate Nutrition. Nutritional Education. Nutritional Supplements. PHYSICAL EXAM - Gen Interactive Oriented to: person, time, and place In distress secondary to decline of status Alert and awake - Skin No breakdown Normacephalic - Eyes Mild bruise over the left lateral eye. - ENMT No abnormalities - Neck No abnormalities - CVS RRR - Chest No abnormalities - Resp Clear to auscultation - Abd + bowel sound - GI Non distended Deferred - No abnormalities - Ext Mild postoperative edema in the left lower extremity - MSK 4+/5 weakness in left lower extremity - Neuro 4/5 strength left lower extremity. - Psych Mild depression. ASSESSMENT: Pt. is a 73 yo Right-handed white female.On 02/18/2019 she was admitted to [facility] and underwent emergen cy surgery for Left Hip Fracture (Unilateral Hip Fracture) by Abram Dutta MD.Pre-morbidly, Pt. was in dependent/mod-I in Locomotion, Safety Awareness, Balance, and Self-Care; and she had good Social Cogn ition, Transfers Control, Sphincter Control, Communication, and Endurance.Currently, she has deficits of Locomotion, Safety Awareness, Self-Care, Balance, Transfers Control, Social Cognition, Sphincter Control, and Endurance.Pt. is now referred to [facility] for acute in-patient rehabilitation in order to maximize patient's functional independence in activities of daily living, strength, ROM, and mobility.- Rehab Goal Patient has realistic goal of being discharged at assistance level 6-Mike to reside at Home with Fam jenn/Relatives. MDM/PLAN: - Physical Therapy Weakness - to improve, our physical therapists will perform initial evaluation of pt's status upon a dmission and devise an individualized program for Aquatic Therapy, Neuromuscular Reeducation, and Str engthening Poor balance - to improve, our physical therapists will perform initial evaluation of pt's status up on admission and devise an individualized program for Balance Training Inability to transfer - to improve, our physical therapists will perform initial evaluation of pt's status upon admission and devise an individualized program for Bed mobility Decreased range of motion - to improve, our physical therapists will perform initial evaluation of p t's status upon admission and devise an individualized program for increasing patient's Range of Guillermo on. Need in caregiver upon discharge - to improve, our physical therapists will perform initial evaluati on of pt's status upon admission and devise an individualized program for Caregiver Training Poor endurance - to improve, our physical therapists will perform initial evaluation of pt's status upon admission and devise an individualized program for Endurance Training Gait dysfunction - to improve, our physical therapists will perform initial evaluation of pt's statu s upon admission and devise an individualized program for Gait Training, and Wheel Chair mobility Need for home safety evaluation - to improve, our physical therapists will perform initial evaluatio n of pt's status upon admission and devise an individualized program for Home Evaluation New precaution - to improve, our physical therapists will perform initial evaluation of pt's status upon admission and devise an individualized program for Patient precaution education Edema - to improve, our physical therapists will perform initial evaluation of pt's status upon admi ssion and devise an individualized program for Elevation Training, and Lymphedema Therapy - Occupational Therapy Weakness - to improve, our occupation therapists will perform initial evaluation of pt's status upon admission and devise an individualized program for Aquatic Therapy, Balance, Endurance, UE ROM, and UE strengthening ADL deficits - to improve, our occupation therapists will perform initial evaluation of pt's status upon admission and devise an individualized program for Bathing, Bed mobility, Community Reintegratio n, Cooking, Dressing, Eating, Fine Motor Skills, Grooming, Homemaking, Kitchen Mobility, Laundry, Pat ient Education, Safety Awareness, Splinting - Positioning, Transfers(Toilet, Tub, Shower), and Wheel Chair Management Need for home care manager rn - to improve, our occupation therapists will perform initial evaluation of pt's status upon admission and devise an individualized program for Caregiver Training Cognitive deficits - to improve, our occupation therapists will perform initial evaluation of pt's s tatus upon admission and devise an individualized program for Cognition - orientation - Other See attached MAR (Medication Administration Record) - Anterior Hip Precaution No abduction No active extension No adduction across midline No external rotation No hip flexion >90 degrees No internal rotation - Diet - Liquid Texture Continue Regular - Tube Feed Continue N/A - Diet Type Continue Regular - Posterior Hip Precaution No external rotation No hip flexion >90 degrees No internal rotation No wheel chair propulsion - Weight Bearing Precaution WBAT left LE - Skin care per protocol - Diet - Solid Texture Continue Regular - Shower allowing shower - Balance for Weakness - Bed mobility for ADL deficits FUNCTIONAL STATUS: UPDATED AT WEEKLY TEAM CONFERENCE - Bladder Same accident frequency: 7-Ind - No accidents in the past 7 days - Bowel Same accident frequency: 7-Ind - No accidents in the past 7 days - Walking Same score based on distance walked: 0(N/A) - Wheelchair Same score based on distance traveled: 0(N/A) FUNCTIONAL STATUS: - Self-Care A. Eating Mike B. Grooming Mike C. Bathing Boby D. Dressing - Upper Boby E. Dressing - Lower modA F. Toileting Boby - Sphincter Control G. Bladder control Mike H. Bowel control Mike - Transfers Control I. Bed/Chair/Wheelchair Boby J. Toilet Boby K. Tub/Shower Boby - Locomotion L. Walk/Wheelchair (B) sup M. Stairs maxA - Communication N. Comprehension (B) Ind O. Expression (B) Ind - Social Cognition P. Social Interaction Ind Q. Problem Solving Ind R. Memory Ind - Endurance Good - Balance Good - Safety Awareness Good QI SCORES: - Self-Care A. Eating 06-Independent B. Oral hygiene 06-Independent C. Toileting hygiene 02-Substantial/maximal assistance E. Shower/bathe self 02-Substantial/maximal assistance F. Upper body dressing 05-Setup or clean-up assistance G. Lower body dressing 01-Dependent H. Putting on/taking off footwear 01-Dependent - Mobility A. Roll left and right 04-Supervision or touching assistance B. Sit to lying 04-Supervision or touching assistance C. Lying to sitting on side of bed 04-Supervision or touching assistance D. Sit to stand 04-Supervision or touching assistance E. Chair/weq-qw-ulviv transfer 04-Supervision or touching assistance F. Toilet transfer 04-Supervision or touching assistance G. Car transfer 88-Not attempted due to medical condition or safety concerns I. Walk 10 feet 04-Supervision or touching assistance J. Walk 50 feet with two turns 10-Not attempted due to environmental limitations K. Walk 150 feet 04-Supervision or touching assistance L. Walking 10 feet on uneven surfaces 10-Not attempted due to environmental limitations M. 1 step (curb) 10-Not attempted due to environmental limitations N. 4 steps 10-Not attempted due to environmental limitations O. 12 steps 10-Not attempted due to environmental limitations P. Picking up object 10-Not attempted due to environmental limitations R. Wheel 50 feet with two turns S. Wheel 150 feet - Bladder and Bowel Bladder continence 0-Always continent Bowel continence 9-Not rated - Endurance Fair - Balance Poor - Safety Awareness Poor CURRENT FUNC. DEFICITS: Endurance, Balance, Mobility, Safety Awareness, and Self-Care SIGNATURE PANEL: (STEWARD/STEWARDESS SMOKE ROOM)
[2019-03-10] MEDS: MELATONIN 5 MG TABLET PO PRN (19:36)
[2019-03-11 07:35] VITALS: BP 142/63; TEMP 96.9
[2019-03-11] MEDS: PROMOD 30 ML DOSE PO SCH (08:00)
[2019-03-11] MEDS: FE SULF/FA/VIT B COMP & C TAB PO SCH (08:00)
[2019-03-11] MEDS: FERROUS SULFATE 325 MG TAB PO SCH (08:27)
[2019-03-11] MEDS: ENOXAPARIN 40 MG/0.4 ML SQ SCH (08:27)
[2019-03-11] MEDS: GABAPENTIN 100 MG CAP PO SCH (08:27)
[2019-03-11] MEDS: LIDOCAINE 4% PATCH TOP SCH (08:27)
[2019-03-11] MEDS: TRAMADOL HCL 50 MG TAB PO PRN (08:27)
[2019-03-11] MEDS: CITALOPRAM 10 MG TABLET PO SCH (08:27)
--- NOTE | 2019-03-11 10:19 | FAST ---
SHIFT START DATE/TIME: 03/11/2019 07:00 (CUSTOMER CARE COORDINATOR) SHIFT END DATE/TIME: 03/11/2019 19:00 (CUSTOMER CARE COORDINATOR) NAME GLORIA CARNEY DATE OF : 1945 DATE OF ADMISSION: 02/24/2019 17:59 (CUSTOMER CARE COORDINATOR) PHONE: AGE: 73 N# [id number] GENDER: Female ENCOUNTER PHYSICIAN: Dr. Dontrell Blevins M.D. ADMISSION DIAGNOSIS: - Orthopaedic Disorders 08 - Unilateral Hip Fracture (08.11) Left Hip Fracture. EATING: EATING - STEP 1: Does the patient complete the activity by him/herself with no assistance (physical, verbal/nonverbal cueing, setup/clean-up)? No. EATING - STEP 2: Does the patient need only setup/clean-up assistance from one helper? Yes. 1. [id number] ADMISSION PERFORMANCE: Setup or clean-up assistance CODE: 05 ORAL HYGIENE: ORAL HYGIENE - STEP 1: Does the patient complete the activity by him/herself with no assistance (physical, verbal/nonverbal cueing, setup/clean-up)? Yes. 1. [id number] ADMISSION PERFORMANCE: Independent CODE: 06 TOILETING HYGIENE: TOILETING HYGIENE - STEP 1: Does the patient complete the activity by him/herself with no assistance (physical, verbal/nonverbal cueing, setup/clean-up)? No. TOILETING HYGIENE - STEP 2: Does the patient need only setup/clean-up assistance from one helper? Yes. 1. [id number] ADMISSION PERFORMANCE: Setup or clean-up assistance CODE: 05 BATHING: Not assessed/no information CODE: - DRESSING - UPPER BODY: Not assessed/no information CODE: - DRESSING - LOWER BODY: Not assessed/no information CODE: - PUTTING ON/TAKING OFF FOOTWEAR: Not assessed/no information CODE: - ROLL LEFT AND RIGHT: Not assessed/no information CODE: - SIT TO LYING: SIT TO LYING - STEP 1: Does the patient complete the activity by him/herself with no assistance (physical, verbal/nonverbal cueing, setup/clean-up)? No. SIT TO LYING - STEP 2: Does the patient need only setup/clean-up assistance from one helper? No. SIT TO LYING - STEP 3: Does the patient need only verbal/nonverbal cueing or touching/steadying/contact guard assistance fro m one helper? Yes. 1. [id number] ADMISSION PERFORMANCE: Supervision or touching assistance CODE: 04 LYING TO SITTING: LYING TO SITTING ON SIDE OF BED - STEP 1: Does the patient complete the activity by him/herself with no assistance (physical, verbal/nonverbal cueing, setup/clean-up)? No. LYING TO SITTING ON SIDE OF BED - STEP 2: Does the patient need only setup/clean-up assistance from one helper? No. LYING TO SITTING ON SIDE OF BED - STEP 3: Does the patient need only verbal/nonverbal cueing or touching/steadying/contact guard assistance fro m one helper? Yes. 1. [id number] ADMISSION PERFORMANCE: Supervision or touching assistance CODE: 04 SIT TO STAND: SIT TO STAND - STEP 1: Does the patient complete the activity by him/herself with no assistance (physical, verbal/nonverbal cueing, setup/clean-up)? No. SIT TO STAND - STEP 2: Does the patient need only setup/clean-up assistance from one helper? No. SIT TO STAND - STEP 3: Does the patient need only verbal/nonverbal cueing or touching/steadying/contact guard assistance fro m one helper? Yes. 1. [id number] ADMISSION PERFORMANCE: Supervision or touching assistance CODE: 04 TRANSFERS: BED, CHAIR: CHAIR/[id number] TRANSFER - STEP 1: Does the patient complete the activity by him/herself with no assistance (physical, verbal/nonverbal cueing, setup/clean-up)? No. CHAIR/[id number] TRANSFER - STEP 2: Does the patient need only setup/clean-up assistance from one helper? No. CHAIR/[id number] TRANSFER - STEP 3: Does the patient need only verbal/nonverbal cueing or touching/steadying/contact guard assistance fro m one helper? Yes. 1. [id number] ADMISSION PERFORMANCE: Supervision or touching assistance CODE: 04 TRANSFER TOILET: TOILET TRANSFER - STEP 1: Does the patient complete the activity by him/herself with no assistance (physical, verbal/nonverbal cueing, setup/clean-up)? No. TOILET TRANSFER - STEP 2: Does the patient need only setup/clean-up assistance from one helper? No. TOILET TRANSFER - STEP 3: Does the patient need only verbal/nonverbal cueing or touching/steadying/contact guard assistance fro m one helper? Yes. 1. [id number] ADMISSION PERFORMANCE: Supervision or touching assistance CODE: 04 TRANSFERS: CAR: Not assessed/no information CODE: - WALK 10 FEET: Not assessed/no information CODE: - 1 STEP (CURB): Not assessed/no information CODE: - PICKING UP OBJECT: Not assessed/no information CODE: - DOES THE PATIENT USE A WHEELCHAIR/SCOOTER? CODE: EXPR WHEEL 50 FEET WITH TWO TURNS: Not assessed/no information CODE: - INDICATE THE TYPE OF WHEELCHAIR/SCOOTER USED: CODE: EXPR WHEEL 150 FEET: Not assessed/no information CODE: - INDICATE THE TYPE OF WHEELCHAIR/SCOOTER USED: CODE: EXPR BLADDER AND BOWEL: H350. BLADDER CONTINENCE (3-DAY ASSESSMENT PERIOD): Always continent (no documented incontinence) CODE: 0 H400. BOWEL CONTINENCE (3-DAY ASSESSMENT PERIOD): Always continent CODE: 0 SIGNATURE PANEL: The following modified sections: 1. [id number] Admission Performance, 1. [id number] Admission Performance, 1. [id number] Admission Performance, 1. [id number] Admission Performance, 1. [id number] Admission Performance, 1. [id number] Admission Performance, 1. [id number] Admission Performance, 1. [id number] Admission Performance , Code, H350. Bladder Continence (3-day assessment period), H400. Bowel Continence (3-day assessment period) were [electronically] signed by Lewis Kan on SunMar 11 2019 10:18:30 T-06 ([facility])
== END 2019-03-11 14:40 | disposition home health service (06) | DRG 561 ==
LOC: 5TH 17:59
PROVIDERS: ADMIT Psychiatry & Neurology Neurology with Special Qualifications in Child Neurology; ATTEND Psychiatry & Neurology Neurology with Special Qualifications in Child Neurology
DX: S72.002S Fracture of unspecified part of neck of left femur, sequela (principal); I10 Essential (primary) hypertension; M81.0 Age-related osteoporosis without current pathological fracture; D64.9 Anemia, unspecified; G47.30 Sleep apnea, unspecified; F32.9 Major depressive disorder, single episode, unspecified
CPT/HCPCS: 36415; 80048; 81001; 82040; 83735; 84134; 85025; 87086; 87088; 92507; 92523; 97110; 97116; 97127; 97161; 97530; 97542; J1650